=== PATIENT | male | born 1965 | race American Indian/Alaskan Native ===

== ENCOUNTER 2016-10-05 02:51 | Inpatient (IN) | payer MEDICAID, OTHER ==
[2016-10-05 04:24] LABS: Anion Gap 18 mmol/L; Blood Urea Nitrogen 12 mg/dL (9-20); Calcium 8.4 mg/dL (8.4-10.2); Carbon Dioxide 23 mmol/L (22-30); Chloride 100.3 mmol/L (98-107); Glucose 357 mg/dL (75-100); Sodium 137 mmol/L (137-145)
[2016-10-05 04:25] LABS: Basophils % (Auto) 0.6 % (0.0-1.8); Eosinophils % (Auto) 5.3 % (0.0-4.3); Hematocrit 41.8 % (35.5-45.6); Hemoglobin 13.9 gm/dl (11.8-15.2); Mean Corpuscular HGB Conc 33 % (32-34); Mean Corpuscular Hemoglobin 31 pg (28-32); Mean Corpuscular Volume 92 fl (84-94); Platelet Count 216 K/mm3 (140-440); Red Blood Count 4.53 M/mm3 (3.65-5.03); Red Cell Distribution Width 13.4 % (13.2-15.2); White Blood Count 5.5 K/mm3 (4.5-11.0)
--- NOTE | 2016-10-05 04:49 | Cat Scan Report ---
FINAL REPORT PROCEDURE: CT HEAD/BRAIN WO CON TECHNIQUE: Computerized tomography of the head was performed without contrast material. HISTORY: headache COMPARISON: No prior studies are available for comparison. FINDINGS: Skull and scalp: Normal. Paranasal sinuses: Normal. Ventricles and subarachnoid spaces: Normal. Cerebrum: No evidence of hemorrhage, acute infarction or mass . Cerebellum and brainstem: No evidence of hemorrhage, acute infarction or mass. Vasculature: Normal. Comments: None. IMPRESSION: Normal Examination
[2016-10-05] MEDS ORDERED: TYLENOL ONE (05:55)
[2016-10-05] MEDS ORDERED: TYLENOL PO ONE (06:06)
--- NOTE | 2016-10-05 06:29 | Emergency Department Report ---
ED General Adult HPI - General Chief complaint: Headache Stated complaint: HEAD ACHES, BACK PAIN Time Seen by Provider: 10/05/16 06:19 Source: patient Mode of arrival: Ambulatory Limitations: No Limitations - History of Present Illness Initial comments: The patient states that he burned his finger on a step on . He states he recalled and bumped his head causing him to be momentarily dazed. Subsequent to that he has had a headache at the site of the head impact which was abraded. He states he went to work on Thursday and passed out completely at work. He has no report of seizure activity. He states he is not had any previous syncopal episode. He presents to the emergency department today mainly for his headache and just not feeling well. He states that he checks his sugar daily and that he took his insulin and metformin this morning. However his diabetes remains poorly controlled. He has not had any fever or chills. He admits to some degree of hurting all over but denies any injury to his neck or back from the fall. He does have some chronic neck and back pain however. -: Sudden, days(s) Location: head Radiation: non-radiation Severity scale (0 -10): 8 Quality: aching Consistency: constant Improves with: none Worsens with: none Associated Symptoms: denies other symptoms, weakness Treatments Prior to Arrival: none - Related Data Home Medications Medication Instructions Recorded Confirmed Last Taken metFORMIN [Glucophage] 1,000 mg PO BID 01/25/15 08/01/15 Unknown Gabapentin 08/01/15 Unknown Insulin NPH/Regular [Novolin 70/30] 30 unit SQ TIDDIAB 08/01/15 08/01/15 Unknown Previous Rx's Medication Instructions Recorded Last Taken Type oxyCODONE /ACETAMINOPHEN [Percocet 1 tab PO Q6HR PRN #8 tablet 01/25/15 Unknown Rx 5/325 mg] Amoxicillin/K Clav Tab [Augmentin 1 tab PO Q12HR #20 tab 02/09/16 Unknown Rx 875 mg] predniSONE [Deltasone] 50 mg PO QDAY #5 tab 02/09/16 Unknown Rx Allergies Allergy/AdvReac Type Severity Reaction Status Date / Time insulin glargine, human Allergy Swelling Verified 03/05/15 00:07 recombin. a [From Lantus] Iodinated Contrast Media - Allergy Angioedema Verified 01/25/15 10:33 IV Dye lisinopril Allergy Unknown Verified 03/01/15 15:36 shellfish derived Allergy Angioedema Verified 01/25/15 10:33 sulfamethoxazole Allergy Hives Verified 01/25/15 10:33 [From Bactrim] tramadol Allergy Swelling Verified 01/25/15 10:33 trimethoprim [From Bactrim] Allergy Hives Verified 01/25/15 10:33 ED Review of Systems ROS: Stated complaint: HEAD ACHES, BACK PAIN Other details as noted in HPI Constitutional: weakness. denies: chills, fever Eyes: denies: eye pain, eye discharge, vision change ENT: denies: ear pain, throat pain Respiratory: denies: cough, shortness of breath, wheezing Cardiovascular: denies: chest pain, palpitations Endocrine: no symptoms reported Gastrointestinal: denies: abdominal pain, nausea, diarrhea Genitourinary: denies: urgency, dysuria Musculoskeletal: denies: back pain, joint swelling, arthralgia Skin: denies: rash, lesions Neurological: headache. 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 ANEMIA. GASTROPARESIS - Surgical History Past Surgical History?: No - Social History Smoking Status: Current Some Day Smoker Substance Use Type: None - Medications Home Medications: Home Medications Medication Instructions Recorded Confirmed Last Taken Type metFORMIN [Glucophage] 1,000 mg PO BID 01/25/15 08/01/15 Unknown History oxyCODONE /ACETAMINOPHEN [Percocet 1 tab PO Q6HR PRN #8 tablet 01/25/15 Unknown Rx 5/325 mg] Gabapentin 08/01/15 Unknown History Insulin NPH/Regular [Novolin 70/30] 30 unit SQ TIDDIAB 08/01/15 08/01/15 Unknown History Amoxicillin/K Clav Tab [Augmentin 1 tab PO Q12HR #20 tab 02/09/16 Unknown Rx 875 mg] predniSONE [Deltasone] 50 mg PO QDAY #5 tab 02/09/16 Unknown Rx ED Physical Exam - General Limitations: No Limitations General appearance: alert, in no apparent distress - Head Head exam: Present: normocephalic, other (forehead abrasion soft tissue swelling no hematoma apparent) - Eye Eye exam: Present: normal appearance. Absent: scleral icterus - ENT ENT exam: Present: mucous membranes moist - Neck Neck exam: Present: normal inspection - Respiratory Respiratory exam: Present: normal lung sounds bilaterally. Absent: respiratory distress - Cardiovascular Cardiovascular Exam: Present: regular rate, normal rhythm. Absent: systolic murmur, diastolic murmur, rubs, gallop - GI/Abdominal GI/Abdominal exam: Present: soft, normal bowel sounds. Absent: distended, tenderness, guarding, rebound - Rectal Rectal exam: Present: deferred - Extremities Exam Extremities exam: Present: normal inspection - Back Exam Back exam: Present: normal inspection - Neurological Exam Neurological exam: Present: alert, oriented X3, CN II-XII intact. Absent: motor sensory deficit - Psychiatric Psychiatric exam: Present: normal affect, normal mood - Skin Skin exam: Present: warm, dry, intact, normal color. Absent: rash ED Course Vital Signs 10/05/16 10/05/16 10/05/16 03:17 04:06 04:10 Temperature 98.7 F Pulse Rate 80 73 Respiratory 18 12 19 Rate Blood Pressure 166/113 141/89 Blood Pressure 166/113 [Left] O2 Sat by Pulse 97 98 Oximetry 10/05/16 10/05/16 10/05/16 04:12 04:28 04:30 Temperature Pulse Rate 73 68 64 Respiratory 15 16 Rate Blood Pressure 141/89 153/91 Blood Pressure 141/89 [Left] O2 Sat by Pulse 98 97 94 Oximetry 10/05/16 10/05/16 10/05/16 04:40 04:50 05:00 Temperature Pulse Rate 71 66 69 Respiratory 18 17 16 Rate Blood Pressure 153/91 153/91 147/98 Blood Pressure [Left] O2 Sat by Pulse 96 99 94 Oximetry 10/05/16 10/05/16 10/05/16 05:10 05:20 05:30 Temperature Pulse Rate 69 68 61 Respiratory 19 19 17 Rate Blood Pressure 147/98 147/98 153/94 Blood Pressure [Left] O2 Sat by Pulse 96 97 92 Oximetry 10/05/16 10/05/16 10/05/16 05:40 05:50 06:00 Temperature Pulse Rate 59 L 68 59 L Respiratory 16 21 15 Rate Blood Pressure 153/94 153/94 144/88 Blood Pressure [Left] O2 Sat by Pulse 100 99 96 Oximetry 10/05/16 10/05/16 10/05/16 06:10 06:28 06:30 Temperature Pulse Rate 63 63 64 Respiratory 16 22 15 Rate Blood Pressure 144/88 144/88 144/88 Blood Pressure [Left] O2 Sat by Pulse 98 99 98 Oximetry 10/05/16 10/05/16 10/05/16 06:40 06:46 07:00 Temperature Pulse Rate 66 64 62 Respiratory 18 22 13 Rate Blood Pressure 144/88 144/88 155/97 Blood Pressure [Left] O2 Sat by Pulse 96 97 96 Oximetry 10/05/16 10/05/16 07:16 07:30 Temperature Pulse Rate 60 55 L Respiratory 18 16 Rate Blood Pressure 155/97 165/95 Blood Pressure [Left] O2 Sat by Pulse 97 Oximetry - Reevaluation(s) Reevaluation #1: Patient was given analgesia. He was found resting comfortably. I thought it prudent to observe him in the hospital for his syncopal episode. I gave him some subcutaneous insulin for his uncontrolled hyperglycemia. Case was reported to Dr. Julio of the hospitalist service who will be seeing him. 10/05/16 08:00 ED Medical Decision Making - Lab Data Result diagrams: 10/05/16 03:51 10/05/16 03:51 Laboratory Results - last 24 hr 10/05/16 10/05/16 10/05/16 03:51 03:51 03:51 WBC 5.5 RBC 4.53 Hgb 13.9 Hct 41.8 MCV 92 MCH 31 MCHC 33 RDW 13.4 Plt Count 216 Lymph % (Auto) 46.0 H Bertie % (Auto) 12.4 H Eos % (Auto) 5.3 H Baso % (Auto) 0.6 Lymph # 2.5 Bertie # 0.7 Eos # 0.3 Baso # 0.0 Seg Neutrophils % 35.7 L Seg Neutrophils # 2.0 VBG pH 7.290 L Sodium 137 Potassium 4.0 Chloride 100.3 Carbon Dioxide 23 Anion Gap 18 BUN 12 Creatinine 1.0 Estimated GFR > 60 BUN/Creatinine Ratio 12.00 Glucose 357 H Calcium 8.4 - EKG Data -: EKG Interpreted by Me EKG shows normal: sinus rhythm, axis, intervals, QRS complexes, ST-T waves Rate: normal - EKG Data Interpretation: no acute changes - Radiology Data interpreted by me: Chest x-ray no acute process CT of the head no acute process. Critical care attestation.: If time is entered above; I have spent that time in minutes in the direct care of this critically ill patient, excluding procedure time. ED Disposition Clinical Impression: Syncopal episodes Qualifiers: Syncope type: unspecified Qualified Code(s): R55 - Syncope and collapse Closed head injury Qualifiers: Encounter type: initial encounter Qualified Code(s): S09.90XA - Unspecified injury of head, initial encounter Forehead abrasion Qualifiers: Encounter type: initial encounter Qualified Code(s): S00.81XA - Abrasion of other part of head, initial encounter Type 2 diabetes mellitus with hyperglycemia Qualifiers: Diabetes mellitus rat exterminator insulin use: with rat exterminator use Qualified Code(s): E11.65 - Type 2 diabetes mellitus with hyperglycemia; Z79.4 - prison (current ) use of insulin Disposition: OP ADMITTED IP TO THIS HOSP Is pt being admited?: Yes Does the pt Need Aspirin: Yes Condition: Stable Instructions: Syncope (ED), Diabetes Mellitus Type 2 in Adults (ED) Referrals: PRIMARY CARE, [Primary Care Provider] - 3-5 Days Time of Disposition: 08:04
[2016-10-05] MEDS ORDERED: NORCO 5/325 PO ONE (06:46)
[2016-10-05 07:13] LABS: Bilirubin,Urine NEG (Negative); Blood,Urine NEG (Negative); Ketones,Urine NEG (Negative); Leukocyte Esterase,Urine NEG (Negative); Mucus,Urine FEW /HPF; Nitrite,Urine NEG (Negative); Protein,Urine <15 mg/dL mg/dL (Negative); Urobilinogen,Urine < 2.0 mg/dL (<2.0); WBC,Urine < 1.0 /HPF (0.0-6.0)
[2016-10-05 07:49] LABS: Urine Drugs of Abuse Note Disclamer
[2016-10-05] MEDS ORDERED: BOOSTRIX IM ONE ×2 (07:53→12:24)
[2016-10-05] MEDS ORDERED: BABY ASPIRIN PO ONE (08:04)
--- NOTE | 2016-10-05 08:15 | Admit Criteria Form ---
Admission Criteria Documentation: SYNCOPE Clinical Indications for Admission to Inpatient Care ( Place 'X' for any and all applicable criteria): Admission is indicated for syncope and ANY ONE of the following (1)(2)(3)(4)(5) (6)(7) : [X ]I. Inpatient admission required rather than observation care (Also use Syncope: Observation Care Criteria as appropriate) because of ANY ONE of the following: [ ]a) Hemodynamic instability that is severe or persistent [ ]b) Cardiac arrhythmias of immediate concern identified or strongly suspected (eg, needs electrophysiologic study) [ ]c) Acute coronary syndrome identified (Also use Myocardial Infarction or Angina Criteria form ) [ ]d) Structural cardiac disorder (eg, aortic stenosis) suspected as cause that requires immediate correction [ ]e) Respiratory symptoms (eg, dyspnea, tachypnea) that are severe or persistent [ ]f) Neurologic signs or symptoms that are severe or persistent ( eg, stroke, seizures, altered mental status) [ ]g) Severe electrolyte abnormalities requiring inpatient care [ ]h) Supplemental oxygen or respiratory treatment for over 24 hrs that are performable only in acute inpatient setting [ ]i) IV fluid to replace significant ongoing (eg, for over 24 hrs ) losses (>3 L/m2 per day) [ ]j) Continuous intravenous infusion of anticoagulation, platelet inhibitor, vasoactive, or antiarrhythmic medication(15)(16) [ ]k) Pulmonary artery catheter monitoring [ ]l) Temporary pacemaker placement(17) [ ]m) Emergent cardioversion(18) [X ]n) Other conditions, treatment or monitoring requiring inpatient admission [ ]II. Suspicion of imminently dangerous cause (eg, rare causes like pericardial tamponade, pulmonary embolism) [ ]III. Syncope causing severe injury requiring hospitalization Extended stay beyond goal length of stay may be needed for(28) [ ]a) Dangerous arrhythmia(15)(23)(27)(29) [ ]b) Myocardial ischemia [ ]c) Seizure disorder [ ]d) Syncope-related injuries The original [employer] content created by [employer] has been revised. The portions of the content which have been revised are identified through the use of italic text or in bold, and [employer] has neither reviewed nor approved the modified material. All other unmodified content is copyright [facility] [employer]. Please see references footnoted in the original [facility] edition 2016 Admission Criteria Met: Yes
[2016-10-05] MEDS ORDERED: MILK OF MAGNESIA PO PRN (08:20)
[2016-10-05] MEDS ORDERED: D50W (25GM) IV PRN (09:00)
[2016-10-05] MEDS ORDERED: DULCOLAX PR PRN (09:00)
--- NOTE | 2016-10-05 09:38 | History and Physical Report ---
History of Present Illness Date of examination: 10/05/16 History of present illness: The patient states that he burned his finger on a step on . He states he recalled and bumped his head causing him to be momentarily dazed. Subsequent to that he has had a headache at the site of the head impact which was abraded. He states he went to work on Thursday and passed out completely at work. He has no report of seizure activity. He states he is not had any previous syncopal episode. He presents to the emergency department today mainly for his headache and just not feeling well. He states that he checks his sugar daily and that he took his insulin and metformin this morning. However his diabetes remains poorly controlled. He has not had any fever or chills. He admits to some degree of hurting all over but denies any injury to his neck or back from the fall. He does have some chronic neck and back pain however. Past History Past Medical History: diabetes Medications and Allergies Allergies Allergy/AdvReac Type Severity Reaction Status Date / Time insulin glargine, human Allergy Swelling Verified 03/05/15 00:07 recombin. a [From Lantus] Iodinated Contrast Media - Allergy Angioedema Verified 01/25/15 10:33 IV Dye lisinopril Allergy Unknown Verified 03/01/15 15:36 shellfish derived Allergy Angioedema Verified 01/25/15 10:33 sulfamethoxazole Allergy Hives Verified 01/25/15 10:33 [From Bactrim] tramadol Allergy Swelling Verified 01/25/15 10:33 trimethoprim [From Bactrim] Allergy Hives Verified 01/25/15 10:33 Home Medications Medication Instructions Recorded Confirmed Last Taken Type metFORMIN [Glucophage] 1,000 mg PO BID 01/25/15 08/01/15 Unknown History oxyCODONE /ACETAMINOPHEN [Percocet 1 tab PO Q6HR PRN #8 tablet 01/25/15 Unknown Rx 5/325 mg] Gabapentin 08/01/15 Unknown History Insulin NPH/Regular [Novolin 70/30] 30 unit SQ TIDDIAB 08/01/15 08/01/15 Unknown History Amoxicillin/K Clav Tab [Augmentin 1 tab PO Q12HR #20 tab 02/09/16 Unknown Rx 875 mg] predniSONE [Deltasone] 50 mg PO QDAY #5 tab 02/09/16 Unknown Rx Active Meds: Active Medications Acetaminophen (Tylenol) 650 mg PO Q4H PRN PRN Reason: Pain MILD(1-3)/Fever >100.5/RODGERS Bisacodyl (Dulcolax) 10 mg FL QDAY PRN PRN Reason: Constipation unrelieved by MOM Dextrose (D50w (25gm)) 50 ml IV PRN PRN PRN Reason: Hypoglycemia Enoxaparin Sodium (Lovenox) 40 mg SUB-Q QDAY@1000 CHRISTIN Gabapentin (Neurontin) 300 mg PO BID CHRISTIN Sodium Chloride (Nacl 0.9% 1000 Ml) 1,000 mls @ 100 mls/hr IV DIRECT CHRISTIN Insulin Aspart (Novolog) 0 units SUB-Q ACHS CHRISTIN PRN Reason: Protocol Insulin Human Isoph/Insulin Regular (Novolin 70/30) 30 unit SUB-Q TIDDIAB CHRISTIN Magnesium Hydroxide (Milk Of Magnesia) 30 ml PO Q4H PRN PRN Reason: Constipation Metformin HCl (Glucophage) 1,000 mg PO BIDDIAB CHRISTIN Ondansetron HCl (Zofran) 4 mg IV Q8H PRN PRN Reason: Nausea And Vomiting Review of Systems Neurological: syncope Exam - Constitutional Vitals: Temp Pulse Resp BP Pulse Ox 98.7 F 55 L 16 165/95 97 10/05/16 03:17 10/05/16 07:30 10/05/16 07:30 10/05/16 07:30 10/05/16 07:16 General appearance: Present: no acute distress - EENT Eyes: Present: PERRL, EOM intact ENT: hearing intact, clear oral mucosa - Neck Neck: Present: supple, normal ROM - Respiratory Respiratory effort: normal Respiratory: bilateral: CTA - Cardiovascular Rhythm: regular Heart Sounds: Present: S1 & S2 - Extremities Extremities: no ischemia, No edema - Abdominal General gastrointestinal: Present: soft, non-tender, non-distended, normal bowel sounds - Musculoskeletal Musculoskeletal: strength equal bilaterally - Psychiatric Psychiatric: appropriate mood/affect, intact judgment & insight - Neurologic Neurologic: CNII-XII intact, moves all extremities Results - Labs CBC & Chem 7: 10/05/16 03:51 10/05/16 03:51 Labs: Laboratory Last Values WBC 5.5 K/mm3 (4.5-11.0) 10/05/16 03:51 RBC 4.53 M/mm3 (3.65-5.03) 10/05/16 03:51 Hgb 13.9 gm/dl (11.8-15.2) 10/05/16 03:51 Hct 41.8 % (35.5-45.6) 10/05/16 03:51 MCV 92 fl (84-94) 10/05/16 03:51 MCH 31 pg (28-32) 10/05/16 03:51 MCHC 33 % (32-34) 10/05/16 03:51 RDW 13.4 % (13.2-15.2) 10/05/16 03:51 Plt Count 216 K/mm3 (140-440) 10/05/16 03:51 Lymph % (Auto) 46.0 % (13.4-35.0) H 10/05/16 03:51 [place] % (Auto) 12.4 % (0.0-7.3) H 10/05/16 03:51 Eos % (Auto) 5.3 % (0.0-4.3) H 10/05/16 03:51 Baso % (Auto) 0.6 % (0.0-1.8) 10/05/16 03:51 Lymph # 2.5 K/mm3 (1.2-5.4) 10/05/16 03:51 [place] # 0.7 K/mm3 (0.0-0.8) 10/05/16 03:51 Eos # 0.3 K/mm3 (0.0-0.4) 10/05/16 03:51 Baso # 0.0 K/mm3 (0.0-0.1) 10/05/16 03:51 Seg Neutrophils % 35.7 % (40.0-70.0) L 10/05/16 03:51 Seg Neutrophils # 2.0 K/mm3 (1.8-7.7) 10/05/16 03:51 VBG pH 7.290 (7.320-7.420) L 10/05/16 03:51 Sodium 137 mmol/L (137-145) 10/05/16 03:51 Potassium 4.0 mmol/L (3.6-5.0) 10/05/16 03:51 Chloride 100.3 mmol/L (98-107) 10/05/16 03:51 Carbon Dioxide 23 mmol/L (22-30) 10/05/16 03:51 Anion Gap 18 mmol/L 10/05/16 03:51 BUN 12 mg/dL (9-20) 10/05/16 03:51 Creatinine 1.0 mg/dL (0.8-1.5) 10/05/16 03:51 Estimated GFR > 60 ml/min 10/05/16 03:51 BUN/Creatinine Ratio 12.00 % 10/05/16 03:51 Glucose 357 mg/dL (75-100) H 10/05/16 03:51 POC Glucose 328 (70-105) H 10/05/16 03:32 Calcium 8.4 mg/dL (8.4-10.2) 10/05/16 03:51 Triglycerides 184 mg/dL (2-149) H 10/05/16 08:39 Cholesterol 123 mg/dL (50-199) 10/05/16 08:39 LDL Cholesterol Direct 57 mg/dL (50-130) 10/05/16 08:39 HDL Cholesterol 30 mg/dL (40-59) L 10/05/16 08:39 Cholesterol/HDL Ratio 4.10 % 10/05/16 08:39 Urine Color Yellow (Yellow) 10/05/16 06:34 Urine Turbidity Clear (Clear) 10/05/16 06:34 Urine pH 6.0 (5.0-7.0) 10/05/16 06:34 Ur Specific [place] 1.030 (1.003-1.030) 10/05/16 06:34 Urine Protein <15 mg/dl mg/dL (Negative) 10/05/16 06:34 Urine Glucose (UA) >=500 mg/dL (Negative) 10/05/16 06:34 Urine Ketones Neg mg/dL (Negative) 10/05/16 06:34 Urine Blood Neg (Negative) 10/05/16 06:34 Urine Nitrite Neg (Negative) 10/05/16 06:34 Urine Bilirubin Neg (Negative) 10/05/16 06:34 Urine Urobilinogen < 2.0 mg/dL (<2.0) 10/05/16 06:34 Ur Leukocyte Esterase Neg (Negative) 10/05/16 06:34 Urine WBC (Auto) < 1.0 /HPF (0.0-6.0) 10/05/16 06:34 Urine RBC (Auto) 3.0 /HPF (0.0-6.0) 10/05/16 06:34 Urine Mucus Few /HPF 10/05/16 06:34 Urine Opiates Screen Presumptive negative 10/05/16 06:30 Urine Methadone Screen Presumptive negative 10/05/16 06:30 Ur Barbiturates Screen Presumptive positive 10/05/16 06:30 Ur Phencyclidine Scrn Presumptive negative 10/05/16 06:30 Ur Amphetamines Screen Presumptive negative 10/05/16 06:30 U Benzodiazepines Scrn Presumptive negative 10/05/16 06:30 Urine Cocaine Screen Presumptive positive 10/05/16 06:30 U Marijuana (THC) Screen Presumptive negative 10/05/16 06:30 Drugs of Abuse Note Disclamer 10/05/16 06:30 Assessment and Plan - Patient Problems (1) Diabetes mellitus Current Visit: Yes Status: Acute Qualifiers: Diabetes mellitus type: D Diabetes mellitus complication status: D Diabetes mellitus complication detail: D Diabetic retinopathy severity: D Proliferative retinopathy type: P Diabetes mellitus macular edema: D 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 Follow hemoglobin A1c (2) Syncopal episodes Current Visit: Yes Status: Acute Qualifiers: Syncope type: unspecified Encounter type: E Qualified Code(s): R55 - Syncope and collapse Plan to address problem: We'll admit to telemetry, get 2-D echo, get Lexiscan stress test, will get cardiology consultation
--- NOTE | 2016-10-05 09:46 | XRay Report ---
AP CHEST: HISTORY: Hypertension AP view of the chest demonstrates a normal mediastinal and cardiac contour with clear lungs and normal bony and soft tissue structures. IMPRESSION: Unremarkable AP chest.
[2016-10-05] MEDS ORDERED: LOVENOX SUB-Q SCH (10:00)
[2016-10-05] MEDS ORDERED: NON-FORMULARY (Gabapentin 300 MG) PO SCH (10:00)
[2016-10-05] MEDS ORDERED: BABY ASPIRIN ONE (12:23)
[2016-10-05] MEDS: LOVENOX SUB-Q SCH (12:36)
[2016-10-05] MEDS: NACL 0.9% 1000 ML 1,000 ML IV SCH (12:36)
[2016-10-05] MEDS: NEURONTIN PO SCH ×2 (12:36→22:49)
[2016-10-05] MEDS: GLUCOPHAGE PO SCH ×2 (12:36→18:04)
[2016-10-05] MEDS: NOVOLOG SUB-Q SCH ×3 (15:39→22:49)
[2016-10-05] MEDS: ZOFRAN IV PRN (18:04)
[2016-10-05] MEDS: TYLENOL PO PRN (18:04)
[2016-10-06] MEDS: TYLENOL PO PRN ×3 (05:28→18:11)
[2016-10-06] MEDS: NACL 0.9% 1000 ML 1,000 ML IV SCH (05:29)
[2016-10-06 06:16] LABS: Hematocrit 42.4 % (35.5-45.6); Mean Corpuscular HGB Conc 33 % (32-34); Mean Corpuscular Hemoglobin 30 pg (28-32); Mean Corpuscular Volume 91 fl (84-94); Platelet Count 189 K/mm3 (140-440); Red Blood Count 4.67 M/mm3 (3.65-5.03); Red Cell Distribution Width 13.1 % (13.2-15.2); White Blood Count 4.7 K/mm3 (4.5-11.0)
[2016-10-06 07:10] LABS: Alanine Aminotransferase 24 units/L (7-56); Albumin 3.8 g/dL (3.9-5); Albumin/Globulin Ratio 1.5 %; Alkaline Phosphatase 72 units/L (35-129); Anion Gap 15 mmol/L; Bilirubin,Total 0.2 mg/dL (0.1-1.2); Blood Urea Nitrogen 12 mg/dL (9-20); Calcium 8.6 mg/dL (8.4-10.2); Carbon Dioxide 24 mmol/L (22-30); Chloride 102.7 mmol/L (98-107); Glucose 208 mg/dL (75-100); Potassium 4.2 mmol/L (3.6-5.0); Sodium 137 mmol/L (137-145); Total Protein 6.3 g/dL (6.3-8.2)
[2016-10-06 07:36] LABS: Creatine Kinase MB 1.6 ng/mL (0.0-4.0)
[2016-10-06 07:37] LABS: Creatine Kinase 157 units/L (55-170)
[2016-10-06] MEDS: GLUCOPHAGE PO SCH ×2 (08:18→18:11)
[2016-10-06] MEDS: NOVOLOG SUB-Q SCH ×3 (08:18→18:11)
[2016-10-06 09:17] LABS: Basophils % (Manual) 0 % (0.0-1.8); Blastocytes % (Manual) 0 %
[2016-10-06 09:18] LABS: Diff Status Complete; RBC Morphology Normal
[2016-10-06] MEDS ORDERED: LEXISCAN IV ONE (10:30)
[2016-10-06] MEDS: ZOFRAN IV PRN (13:35)
[2016-10-06] MEDS: NEURONTIN PO SCH (13:35)
[2016-10-06] MEDS: LOVENOX SUB-Q SCH ×2 (13:35→13:39)
--- NOTE | 2016-10-06 13:39 | Consultation ---
History of Present Illness Consult date: 10/06/16 Consult reason: syncope History of present illness: Patient is a 50-year-old man presented to the emergency room 2 days after a syncopal episode. He eventually reported with persistent headache and low back pain. There was no chest pain or shortness of breath. A CAT scan of the head in the emergency room was negative. During his period of hospitalization, his blood pressure has remained persistently elevated, as high as 186 systolic today. He was seen by the medical team, a thallium stress test was ordered, and cardiac consultation was requested. A Persantine thallium stress test today was negative. An echocardiogram showed well-preserved left ventricular systolic function with ejection fraction 55-60% , mild concentric left ventricular hypertrophy. It is uncertain if his hypertension is a new diagnosis. Comorbidities include diabetes, he is recently not on antihypertensive medications. Past History Past Medical History: diabetes, hypertension Medications and Allergies Allergies Allergy/AdvReac Type Severity Reaction Status Date / Time insulin glargine, human Allergy Swelling Verified 03/05/15 00:07 recombin. a [From Lantus] Iodinated Contrast Media - Allergy Angioedema Verified 01/25/15 10:33 IV Dye lisinopril Allergy Unknown Verified 03/01/15 15:36 shellfish derived Allergy Angioedema Verified 01/25/15 10:33 sulfamethoxazole Allergy Hives Verified 01/25/15 10:33 [From Bactrim] tramadol Allergy Swelling Verified 01/25/15 10:33 trimethoprim [From Bactrim] Allergy Hives Verified 01/25/15 10:33 Home Medications Medication Instructions Recorded Confirmed Last Taken Type metFORMIN [Glucophage] 1,000 mg PO BID 01/25/15 10/06/16 1 Day Ago History Insulin NPH/Regular [Novolin 70/30] 30 unit SQ TIDDIAB 08/01/15 10/06/16 1 Day Ago History Active Meds: Active Medications Acetaminophen (Tylenol) 650 mg PO Q4H PRN PRN Reason: Pain MILD(1-3)/Fever >100.5/RODGERS Last Admin: 10/06/16 05:28 Dose: 650 mg Bisacodyl (Dulcolax) 10 mg PA QDAY PRN PRN Reason: Constipation unrelieved by MOM Dextrose (D50w (25gm)) 50 ml IV PRN PRN PRN Reason: Hypoglycemia Enoxaparin Sodium (Lovenox) 40 mg SUB-Q QDAY@1000 [facility] Last Admin: 10/05/16 12:36 Dose: 40 mg Gabapentin (Neurontin) 300 mg PO BID [facility] Last Admin: 10/05/16 22:49 Dose: 300 mg Sodium Chloride (Nacl 0.9% 1000 Ml) 1,000 mls @ 100 mls/hr IV DIRECT [facility] Last Admin: 10/06/16 05:29 Dose: 100 mls/hr Insulin Aspart (Novolog) 0 units SUB-Q ACHS [facility] PRN Reason: Protocol Last Admin: 10/06/16 08:18 Dose: Not Given Insulin Human Isoph/Insulin Regular (Novolin 70/30) 30 unit SUB-Q TIDDIAB [facility] Last Admin: 10/06/16 08:18 Dose: Not Given Magnesium Hydroxide (Milk Of Magnesia) 30 ml PO Q4H PRN PRN Reason: Constipation Metformin HCl (Glucophage) 1,000 mg PO BIDDIAB [facility] Last Admin: 10/06/16 08:18 Dose: Not Given Ondansetron HCl (Zofran) 4 mg IV Q8H PRN PRN Reason: Nausea And Vomiting Last Admin: 10/05/16 18:04 Dose: 4 mg Review of Systems Cardiovascular: syncope, no chest pain, no orthopnea, no palpitations, no rapid/ irregular heart beat, no edema, no lightheadedness, no shortness of breath Physical Examination Vital Signs Temp Pulse Resp BP Pulse Ox 98.7 F 80 18 166/113 100 10/05/16 03:17 10/05/16 03:17 10/05/16 03:17 10/05/16 03:17 10/05/16 03:17 General appearance: no acute distress HEENT: Positive: PERRL Neck: Positive: neck supple Cardiac: Positive: Reg Rate and Rhythm Lungs: Positive: Decreased Breath Sounds Neuro: Positive: Grossly Intact Abdomen: Positive: Soft Male genitourinary: Positive: deferred Skin: Positive: Clear Extremities: Absent: edema Results 10/06/16 05:06 10/06/16 05:06 Cardiac Enzymes 10/06/16 10/06/16 Range/Units 05:06 05:06 AST 15 (5-40) units/L CK-MB (CK-2) 1.6 (0.0-4.0) ng/mL CBC 10/06/16 Range/Units 05:06 WBC 4.7 (4.5-11.0) K/mm3 RBC 4.67 (3.65-5.03) M/mm3 Hgb 14.0 (11.8-15.2) gm/dl Hct 42.4 (35.5-45.6) % Plt Count 189 (140-440) K/mm3 Comprehensive Metabolic Panel 10/06/16 Range/Units 05:06 Sodium 137 (137-145) mmol/L Potassium 4.2 (3.6-5.0) mmol/L Chloride 102.7 (98-107) mmol/L Carbon Dioxide 24 (22-30) mmol/L BUN 12 (9-20) mg/dL Creatinine 1.0 (0.8-1.5) mg/dL Glucose 208 H (75-100) mg/dL Calcium 8.6 (8.4-10.2) mg/dL AST 15 (5-40) units/L ALT 24 (7-56) units/L Alkaline Phosphatase 72 (35-129) units/L Total Protein 6.3 (6.3-8.2) g/dL Albumin 3.8 L (3.9-5) g/dL EKG interpretations - Telemetry EKG Rhythm: Sinus Rhythm Assessment and Plan - Patient Problems (1) Syncope Current Visit: Yes Status: Acute Qualifiers: Syncope type: S Encounter type: E Plan to address problem: Patient describes a syncopal episode which occurred 2 days prior to presentation , no further complaints related to this. Cardiac workup is negative, with negative Persantine thallium and well-preserved left ventricle systolic function on echocardiogram. (2) Hypertension Current Visit: Yes Status: Acute Qualifiers: Hypertension type: H Plan to address problem: The patient presented with headache and has manifested persistent uncontrolled hypertension. We will recommend hypertension treatment, with Diovan 160 mg daily.
[2016-10-06] MEDS ORDERED: DIOVAN PO SCH (14:00)
--- NOTE | 2016-10-06 14:00 | Treadmill Report ---
THALLIUM STRESS TEST LEFT VENTRICLE: Left ventricle is at the upper limits of normal in size. Perfusion study demonstrates evidence of motion artifact, but no significant perfusion defects identified. Gated analysis demonstrates left ventricular systolic function at the lower limits of normal, ejection fraction of 49%. CONCLUSION: Suboptimal study, no significant defects identified, negative study. Clinical correlation is recommended. JOB# [id number] CA/NTS
--- NOTE | 2016-10-06 17:23 | Progress Note ---
Assessment and Plan 1, Recurrent syncope: No more syncope since admission. No seizure activity noter or reported by any. Normal CT head and ECHO. Aetiology, possibly drug related has positive cocain in urine 2. Malignant Hypertension Optimnize controle with Amlodpine and Valsartan 3. Mutiple drug abuse Has positive cocain and Barbiturate in urine. Counseling on cessation of cocain use done 4. Diabetes Mellitus A1c 9.9%. On insulin therapy Subjective Date of service: 10/06/16 Principal diagnosis: recurrent syndope, Malignant Hypertesnion Interval history: no more syncope. Blood sugar still elevated Objective - Constitutional Vitals: Vital Signs - 12hr 10/06/16 10/06/16 10/06/16 08:00 08:46 09:54 Temperature 97.9 F Pulse Rate 62 57 L Pulse Rate [ 60 Left Radial] Respiratory 20 Rate Blood Pressure 186/107 Blood Pressure 174/90 [Left Arm] O2 Sat by Pulse 97 99 Oximetry 10/06/16 10/06/16 10/06/16 10:22 10:23 10:24 Temperature Pulse Rate 85 83 81 Pulse Rate [ Left Radial] Respiratory Rate Blood Pressure 186/107 167/101 159/99 Blood Pressure [Left Arm] O2 Sat by Pulse Oximetry 10/06/16 10/06/16 10/06/16 10:25 10:26 12:00 Temperature 98.0 F Pulse Rate 78 77 Pulse Rate [ 64 Left Radial] Respiratory 18 Rate Blood Pressure 153/100 165/102 Blood Pressure 167/90 [Left Arm] O2 Sat by Pulse 100 Oximetry General appearance: Present: no acute distress, well-nourished - EENT Eyes: PERRL, EOM intact ENT: hearing intact, clear oral mucosa - Neck Neck: supple, normal ROM - Respiratory Respiratory effort: normal Respiratory: bilateral: CTA - Breasts Breasts: normal - Cardiovascular Rhythm: regular Heart Sounds: Present: S1 & S2. Absent: gallop, rub Extremities: pulses intact, No edema, normal color, Full ROM - Gastrointestinal General gastrointestinal: Present: soft, non-tender, non-distended, normal bowel sounds - Integumentary Integumentary: clear, warm, dry - Musculoskeletal Musculoskeletal: 1, strength equal bilaterally - Neurologic Neurologic: moves all extremities - Psychiatric Psychiatric: memory intact, appropriate mood/affect, intact judgment & insight - Labs CBC & Chem 7: 10/06/16 05:06 10/06/16 05:06 Labs: Abnormal lab results 10/05/16 10/05/16 10/06/16 Range/Units 18:03 21:43 05:06 RDW 13.1 L (13.2-15.2) % Seg Neuts % (Manual) 30.0 L (40.0-70.0) % Lymphocytes % (Manual) 50.0 H (13.4-35.0) % Monocytes % (Manual) 9.0 H (0.0-7.3) % Eosinophils % (Manual) 11.0 H (0.0-4.3) % Seg Neutrophils # Man 1.4 L (1.8-7.7) K/mm3 Eosinophils # (Manual) 0.5 H (0.0-0.4) K/mm3 Glucose (75-100) mg/dL POC Glucose 194 H 284 H (70-105) Albumin (3.9-5) g/dL 10/06/16 Range/Units 05:06 RDW (13.2-15.2) % Seg Neuts % (Manual) (40.0-70.0) % Lymphocytes % (Manual) (13.4-35.0) % Monocytes % (Manual) (0.0-7.3) % Eosinophils % (Manual) (0.0-4.3) % Seg Neutrophils # Man (1.8-7.7) K/mm3 Eosinophils # (Manual) (0.0-0.4) K/mm3 Glucose 208 H (75-100) mg/dL POC Glucose (70-105) Albumin 3.8 L (3.9-5) g/dL
[2016-10-06] MEDS ORDERED: NORVASC PO SCH (18:00)
[2016-10-06 19:48] VITALS: BP 173/83
--- NOTE | 2016-10-06 20:10 | Discharge Summary ---
Providers - Providers Date of Admission: 10/05/16 08:21 Date of discharge: 10/06/16 Attending physician: ANNIKA PIÑA none Primary care physician: BARREL DRILLER Hospitalization Reason for admission: rerecurrent syncope Condition: Stable Procedures: none Disposition: DISCHARGED TO HOME OR SELFCARE Core Measure Documentation - Palliative Care Palliative Care/ Comfort Measures: Not Applicable - Core Measures Any of the following diagnoses?: none Exam - Constitutional Vitals: Temp Pulse Resp BP Pulse Ox 99.1 F 57 L 18 173/83 98 10/06/16 19:47 10/06/16 19:47 10/06/16 19:47 10/06/16 19:47 10/06/16 19:47 General appearance: Present: no acute distress, well-nourished - EENT Eyes: Present: PERRL ENT: hearing intact, clear oral mucosa - Neck Neck: Present: supple, normal ROM - Respiratory Respiratory effort: normal Respiratory: bilateral: CTA - Cardiovascular Heart Sounds: Present: S1 & S2. Absent: rub, click - Extremities Extremities: pulses symmetrical, No edema Peripheral Pulses: within normal limits - Abdominal General gastrointestinal: Present: soft, non-tender, non-distended, normal bowel sounds Male genitourinary: Present: normal - Integumentary Integumentary: Present: clear, warm, dry - Musculoskeletal Musculoskeletal: gait normal, strength equal bilaterally - Psychiatric Psychiatric: appropriate mood/affect, intact judgment & insight - Neurologic Neurologic: CNII-XII intact, moves all extremities Plan Diet: regular Follow up with: PRIMARY CARE, [Primary Care Provider] - 3-5 Days Prescriptions: amLODIPine [Norvasc] 10 mg PO QDAY #30 tablet Gabapentin [Neurontin] 300 mg PO BID #60 capsule Insulin NPH/Regular [NovoLIN 70/30] 30 unit SQ TIDDIAB #200 units metFORMIN [Glucophage] 1,000 mg PO BID #60 tablet Valsartan [Diovan] 160 mg PO DAILY #30 tablet
[2016-10-09 06:08] LABS: B-Hydroxybutyrate 0.1 mmol/L (0.2 - 0.28)
== END 2016-10-06 22:55 | disposition home or self-care (01) | DRG 897 ==
LOC: ED 02:51 → 4A 08:21
PROVIDERS: ADMIT Internal Medicine; ATTEND Family Medicine
DX: F14.10 Cocaine abuse, uncomplicated (principal); R55 Syncope and collapse; F13.10 Sedative, hypnotic or anxiolytic abuse, uncomplicated; Z91.013 Allergy to seafood; Z88.8 Allergy status to other drugs, medicaments and biological substances; Z91.041 Radiographic dye allergy status; I10 Essential (primary) hypertension; Z88.2 Allergy status to sulfonamides; K31.84 Gastroparesis; E11.65 Type 2 diabetes mellitus with hyperglycemia; G89.29 Other chronic pain; S00.81XA Abrasion of other part of head, initial encounter; X58.XXXA Exposure to other specified factors, initial encounter; Y93.89 Activity, other specified; Y92.89 Other specified places as the place of occurrence of the external cause; Y99.8 Other external cause status; Z79.4 Long term (current) use of insulin; Z71.51 Drug abuse counseling and surveillance of drug abuser
CPT/HCPCS: 36415; 70450; 71010; 78452; 80048; 80053; 80061; 80307; 81001; 82010; 82043; 82550; 82553; 82805; 82962; 83036; 84484; 85007; 85025; 90471; 90715; 93005; 93010; 93017; 93306; 96372; 99406; A9502; J1650; J1815; J2405; J2785; J7030

== ENCOUNTER 2017-02-26 17:40 | Emergency (ER) | payer SELFPAY | END 2017-02-26 17:50 | disposition left against medical advice (07) | LOC: ED 17:40 | DX: Z53.21 Procedure and treatment not carried out due to patient leaving prior to being seen by health care provider (principal) ==

== ENCOUNTER 2017-04-02 09:27 | Emergency (ER) | payer OTHER ==
[2017-04-02 09:49] VITALS: BP 166/97
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
[2017-04-02 11:27] LABS: Bilirubin,Urine NEG (Negative); Blood,Urine NEG (Negative); Ketones,Urine NEG (Negative); Leukocyte Esterase,Urine NEG (Negative); Mucus,Urine FEW /HPF; Nitrite,Urine NEG (Negative); Protein,Urine <15 mg/dL mg/dL (Negative); Urobilinogen,Urine < 2.0 mg/dL (<2.0)
[2017-04-02] MEDS ORDERED: NORCO 5/325 PO ONE (12:00)
[2017-04-02] MEDS ORDERED: FLEXERIL PO ONE (12:02)
== END 2017-04-02 13:30 | disposition home or self-care (01) ==
LOC: ED 09:27
DX: S09.90XA Unspecified injury of head, initial encounter (principal); M54.16 Radiculopathy, lumbar region; G44.309 Post-traumatic headache, unspecified, not intractable; I10 Essential (primary) hypertension; E11.9 Type 2 diabetes mellitus without complications; F17.200 Nicotine dependence, unspecified, uncomplicated; Z79.4 Long term (current) use of insulin; V49.49XA Driver injured in collision with other motor vehicles in traffic accident, initial encounter; Y92.488 Other paved roadways as the place of occurrence of the external cause; Y93.89 Activity, other specified; Y99.8 Other external cause status
CPT/HCPCS: 70450; 81001

== ENCOUNTER 2017-05-01 01:14 | Emergency (ER) | payer SELFPAY ==
[2017-05-01 01:54] LABS: Hematocrit 43.4 % (35.5-45.6); Hemoglobin 14.7 gm/dl (11.8-15.2); Mean Corpuscular HGB Conc 34 % (32-34); Mean Corpuscular Hemoglobin 31 pg (28-32); Mean Corpuscular Volume 90 fl (84-94); Platelet Count 205 K/mm3 (140-440); Red Cell Distribution Width 13.6 % (13.2-15.2); White Blood Count 4.6 K/mm3 (4.5-11.0)
[2017-05-01 02:17] LABS: Anion Gap 17 mmol/L; BUN/Creatinine Ratio 15; Blood Urea Nitrogen 15 mg/dL (9-20); Calcium 8.7 mg/dL (8.4-10.2); Carbon Dioxide 27 mmol/L (22-30); Chloride 102.8 mmol/L (98-107); Glucose 211 mg/dL (75-100); Potassium 3.9 mmol/L (3.6-5.0); Sodium 143 mmol/L (137-145)
[2017-05-01 03:23] LABS: Bacteria,Urine 1+ /HPF (Negative); Bilirubin,Urine NEG (Negative); Blood,Urine NEG (Negative); Ketones,Urine NEG (Negative); Leukocyte Esterase,Urine NEG (Negative); Mucus,Urine FEW /HPF; Nitrite,Urine NEG (Negative); Protein,Urine <15 mg/dL mg/dL (Negative); RBC,Urine < 1.0 /HPF (0.0-6.0)
--- NOTE | 2017-05-01 04:49 | Cat Scan Report ---
FINAL REPORT EXAM: CT HEAD/BRAIN WO CON HISTORY: RODGERS TECHNIQUE: Routine axial imaging was obtained of the brain without IV contrast. Comparison is made to the study of 04/02/2017 FINDINGS: There are no attenuation abnormalities. The ventricular system is appropriate in size and is symmetric. The basal cisterns appear normal. The visualized sinuses are clear. The mastoid air cells are well pneumatized IMPRESSION: Within normal limits.
[2017-05-01 09:09] VITALS: BP 136/84
== END 2017-05-01 08:40 | disposition left against medical advice (07) ==
LOC: ED 01:14
DX: R51 Headache (principal); Z53.21 Procedure and treatment not carried out due to patient leaving prior to being seen by health care provider
CPT/HCPCS: 36415; 70450; 80048; 81001; 85027

== ENCOUNTER 2017-10-10 07:40 | Inpatient (IN) | payer OTHER ==
[2017-10-10] MEDS ORDERED: GEODON IM ONE ×2 (08:12→08:15)
[2017-10-10] MEDS ORDERED: WATER FOR INJ (PF) 10 ML ONE (08:12)
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
[2017-10-10 08:47] LABS: Bilirubin,Urine NEG (Negative); Blood,Urine MOD (Negative); Color,Urine Yellow (Yellow); Mucus,Urine FEW /HPF; Urobilinogen,Urine < 2.0 mg/dL (<2.0)
[2017-10-10 09:02] LABS: Eosinophils % (Auto) 0.1 % (0.0-4.3); Hematocrit 41.8 % (35.5-45.6); Hemoglobin 13.7 gm/dl (11.8-15.2); Lymphocytes # (Auto) 0.8 K/mm3 (1.2-5.4); Mean Corpuscular HGB Conc 33 % (32-34); Mean Corpuscular Hemoglobin 30 pg (28-32); Mean Corpuscular Volume 92 fl (84-94); Monocytes % (Auto) 8.6 % (0.0-7.3); Platelet Count 206 K/mm3 (140-440); Red Blood Count 4.56 M/mm3 (3.65-5.03); Red Cell Distribution Width 13.5 % (13.2-15.2)
[2017-10-10 09:05] LABS: Amphetamine Screen,Urine PRESUMPTIVE NEGATIVE; Benzodiazepines Screen,Urine PRESUMPTIVE NEGATIVE; Cannabinoid Screen,Urine PRESUMPTIVE NEGATIVE; Methadone Screen,Urine PRESUMPTIVE NEGATIVE; Opiate Screen,Urine PRESUMPTIVE NEGATIVE
[2017-10-10 09:11] LABS: BUN/Creatinine Ratio 10; Blood Urea Nitrogen 12 mg/dL (9-20); Calcium 8.8 mg/dL (8.4-10.2); Hemolysis Index 17
[2017-10-10 09:27] LABS: Cocaine Screen,Urine PRESUMPTIVE POSITIVE
--- NOTE | 2017-10-10 09:36 | Cat Scan Report ---
CT scan of the without IV contrast: History: Head Injury. Findings: Ventricles are normal in size and midline in location. No evidence of acute ischemia, hemorrhage or mass. No extra-axial fluid collection. Normal brainstem and cerebellum. Normal calvarium. Impression: No evidence of acute intracranial abnormality
--- NOTE | 2017-10-10 09:38 | Cat Scan Report ---
CT scan of cervical spine: Next History: Trauma. Findings: The odontoid process and the lateral mass and anterior and posterior arch of atlas appears unremarkable. Normal occipital condyles. Normal height of vertebral bodies. Decrease in height of C4-C5, C5-C6 and C6-C7. Sclerotic articular surfaces with osteophyte suggestive of severe cervical spondylosis being most pronounced at C5-C6 and C6-7. No definite evidence of acute fracture. Normal prevertebral soft tissue. Impression: Severe cervical spondylosis. No evidence of acute fracture.
--- NOTE | 2017-10-10 09:40 | Cat Scan Report ---
CT scan of chest without IV contrast: History: Trauma. Findings: No endobronchial or mediastinal mass. No mediastinal, hilar or axillary adenopathy. No pleural pericardial effusion. Small sliding hiatal hernia. Normal lung parenchyma. No consolidation or pneumothorax the Impression: Small sliding hiatal hernia. No acute lung changes.
--- NOTE | 2017-10-10 09:42 | Cat Scan Report ---
CT scan of abdomen and pelvis without IV contrast: History: Trauma. Findings: Normal liver spleen pancreas and gallbladder. Fluid-filled stomach. Bilaterally enlarged adrenals without evidence of mass. Circumscribed hypodensity left kidney measuring 2.8 cm suggestive of a cyst. No hydronephrosis. Normal bladder. No free intraperitoneal fluid or air. No evidence of adenopathy. Normal aorta opinion Gaseous colon with moderate amount of stool in colon. No bowel wall thickening or bowel distention. No evidence of appendicitis or diverticulitis. Next Impression: Cyst left kidney. Suspected bilaterally enlarged adrenal glands.
[2017-10-10] MEDS ORDERED: HumuLIN R IV ONE (09:52)
[2017-10-10] MEDS ORDERED: NACL 0.9% 1000 ML 1,000 ML IV ONE ×3 (09:52→14:43)
[2017-10-10] MEDS ORDERED: TYLENOL ONE ×2 (13:04→13:21)
[2017-10-10] MEDS ORDERED: TYLENOL PO ONE (13:38)
[2017-10-10] MEDS ORDERED: ZOFRAN IV PRN (17:28)
[2017-10-10] MEDS ORDERED: SODIUM CHLORIDE FLUSH SYRINGE 10 ML IV PRN (17:28)
--- NOTE | 2017-10-10 17:28 | History and Physical Report ---
History of Present Illness Date of examination: 10/10/17 Date of admission: 10/10/2017 Chief complaint: Chief complaint: Patient indicates psychosis with hallucinations brought by the police department History of present illness: History of Present Illness: 51-year-old male with history of insulin-dependent diabetes hypertension and schizophrenia/bipolar disorder brought into the emergency room by police department for being involved in an altercation with his family. Patient has severe psychosis and auditory and visual hallucinations. As per police-- patient was very aggressive and was trying to fight them and also was trying to damage the police car. In the process patient sustained some abrasions to his scalp. Patient also complaining of pain all over. No other complaints. Patient is quite now. Patient apparently smashed his head into bars and eventually enough to break the glass of the police car. 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 ANEMIA. GASTROPARESIS. chronic back pain Social History Smoking Status: Current Every Day Smoker Substance Use Type: Alcohol Family and surgical history Noncontributory - Medications Home Medications: Home Medications Medication Instructions Recorded Confirmed Last Taken Type Gabapentin [Neurontin] 300 mg PO BID #60 capsule 10/06/16 Unknown Rx Insulin NPH/Regular [NovoLIN 70/30] 30 unit SQ TIDDIAB #200 units 10/06/16 Unknown Rx Valsartan [Diovan] 160 mg PO DAILY #30 tablet 10/06/16 Unknown Rx amLODIPine [Norvasc] 10 mg PO QDAY #30 tablet 10/06/16 Unknown Rx metFORMIN [Glucophage] 1,000 mg PO BID #60 tablet 10/06/16 Unknown Rx Cyclobenzaprine [Flexeril] 10 mg PO TID PRN #15 tablet 04/02/17 Unknown Rx Medications and Allergies Allergies Allergy/AdvReac Type Severity Reaction Status Date / Time insulin glargine, human Allergy Swelling Verified 03/05/15 00:07 recombin. a [From Lantus] Iodinated Contrast- Oral and Allergy Angioedema Verified 01/25/15 10:33 IV Dye [Iodinated Contrast Media - IV Dye] lisinopril Allergy Unknown Verified 03/01/15 15:36 shellfish derived Allergy Angioedema Verified 01/25/15 10:33 sulfamethoxazole Allergy Hives Verified 01/25/15 10:33 [From Bactrim] tramadol Allergy Swelling Verified 01/25/15 10:33 trimethoprim [From Bactrim] Allergy Hives Verified 01/25/15 10:33 Home Medications Medication Instructions Recorded Confirmed Last Taken Type Gabapentin [Neurontin] 300 mg PO BID #60 capsule 10/06/16 10/10/17 Unknown Rx Insulin NPH/Regular [NovoLIN 70/30] 30 unit SQ TIDDIAB #200 units 10/06/1610/10 Unknown Rx Valsartan [Diovan] 160 mg PO DAILY #30 tablet 10/06/16 10/10/17 Unknown Rx amLODIPine [Norvasc] 10 mg PO QDAY #30 tablet 10/06/16 10/10/17 Unknown Rx metFORMIN [Glucophage] 1,000 mg PO BID #60 tablet 10/06/16 10/10/17 Unknown Rx Cyclobenzaprine [Flexeril] 10 mg PO TID PRN #15 tablet 04/02/17 10/10/17 Unknown Rx Ziprasidone HCl [Geodon] 40 mg PO BID 10/10/17 10/10/17 Unknown History clonazePAM 2 mg PO DAILY 10/10/17 10/10/17 Unknown History lamoTRIgine [LaMICtal] 25 mg PO QDAY 10/10/17 10/10/17 Unknown History Active Meds: Active Medications Sodium Chloride (Nacl 0.9% 1000 Ml) 1,000 mls @ 250 mls/hr IV ONCE ONE Stop: 10/10/17 18:42 Last Admin: 10/10/17 15:00 Dose: 250 mls/hr Review of Systems All systems: negative Constitutional: chronic pain, no weight loss, no weight gain, no fever, no chills, no sweats, no night sweats, no anorexia, no fatigue, no weakness, no malaise, no lethargy, no chronic headaches Ears, nose, mouth and throat: no mouth pain, no dysphagia, no hoarseness, no sore throat, no swelling in mouth, no swelling in throat, no odynophagia Cardiovascular: no chest pain, no orthopnea, no palpitations, no rapid/ irregular heart beat, no edema, no syncope, no lightheadedness, no shortness of breath, no dyspnea on exertion Respiratory: no cough, no cough with sputum, no excessive sputum, no hemoptysis , no shortness of breath, no dyspnea on exertion Gastrointestinal: no abdominal pain, no nausea, no vomiting, no diarrhea, no constipation, no change in bowel habits, no hematemesis, no coffee ground emesis Genitourinary Male: no dysuria, no hematuria, no flank pain, no discharge, no urinary frequency, no urinary hesitancy, no nocturia, no incontinence, no erectile dysfunction, no genital pain Rectal: no pain Musculoskeletal: neck pain, low back pain Integumentary: other (abrasions on scalp), no rash, no pruritis, no redness, no sores, no wounds, no jaundice, no boils, no blisters Neurological: no head injury, no transient paralysis, no paralysis, no seizures , no syncope Psychiatric: disorientation, hallucinations, paranoia, anxiety attacks, irritability, mood swings, no anxiety, no memory loss, no change in sleep habits , no sleep disturbances, no insomnia Endocrine: no cold intolerance, no heat intolerance, no polyphagia, no excessive thirst, no polydipsia, no polyuria Hematologic/Lymphatic: no easy bruising, no easy bleeding Allergic/Immunologic: no urticaria, no allergic rhinitis, no wheezing Exam - Physical Exam Narrative exam: Lying in bed in no acute distress - Constitutional Vitals: Temp Pulse Resp BP Pulse Ox 98.4 F 78 16 155/90 100 10/10/17 16:00 10/10/17 16:00 10/10/17 16:00 10/10/17 16:00 10/10/17 16:00 General appearance: Present: no acute distress, well-nourished - EENT Eyes: Present: PERRL ENT: hearing intact, clear oral mucosa - Neck Neck: Present: supple, normal ROM - Respiratory Respiratory effort: normal Respiratory: bilateral: CTA - Cardiovascular Heart Sounds: Present: S1 & S2. Absent: rub, click - Extremities Extremities: no ischemia, pulses intact, pulses symmetrical, No edema Peripheral Pulses: within normal limits - Abdominal General gastrointestinal: Present: soft, non-tender, non-distended, normal bowel sounds Male genitourinary: Present: normal - Rectal Rectal Exam: deferred - Integumentary Integumentary: Present: clear, warm, dry - Musculoskeletal Musculoskeletal: gait normal, strength equal bilaterally - Psychiatric Psychiatric: intact judgment & insight, cooperative, agitated, other (psychotic) - Neurologic Neurologic: CNII-XII intact, moves all extremities - Allied Health Allied health notes reviewed: nursing, case management Results - Labs CBC & Chem 7: 10/10/17 08:25 10/10/17 08:25 Labs: Laboratory Last Values WBC 11.6 K/mm3 (4.5-11.0) H 10/10/17 08:25 RBC 4.56 M/mm3 (3.65-5.03) 10/10/17 08:25 Hgb 13.7 gm/dl (11.8-15.2) 10/10/17 08:25 Hct 41.8 % (35.5-45.6) 10/10/17 08:25 MCV 92 fl (84-94) 10/10/17 08:25 MCH 30 pg (28-32) 10/10/17 08:25 MCHC 33 % (32-34) 10/10/17 08:25 RDW 13.5 % (13.2-15.2) 10/10/17 08:25 Plt Count 206 K/mm3 (140-440) 10/10/17 08:25 Lymph % (Auto) 7.0 % (13.4-35.0) L 10/10/17 08:25 [place] % (Auto) 8.6 % (0.0-7.3) H 10/10/17 08:25 Eos % (Auto) 0.1 % (0.0-4.3) 10/10/17 08:25 Baso % (Auto) 0.0 % (0.0-1.8) 10/10/17 08:25 Lymph # 0.8 K/mm3 (1.2-5.4) L 10/10/17 08:25 [place] # 1.0 K/mm3 (0.0-0.8) H 10/10/17 08:25 Eos # 0.0 K/mm3 (0.0-0.4) 10/10/17 08:25 Baso # 0.0 K/mm3 (0.0-0.1) 10/10/17 08:25 Seg Neutrophils % 84.3 % (40.0-70.0) H 10/10/17 08:25 Seg Neutrophils # 9.8 K/mm3 (1.8-7.7) H 10/10/17 08:25 Sodium 139 mmol/L (137-145) 10/10/17 08:25 Potassium 3.6 mmol/L (3.6-5.0) 10/10/17 08:25 Chloride 98.7 mmol/L (98-107) 10/10/17 08:25 Carbon Dioxide 19 mmol/L (22-30) L 10/10/17 08:25 Anion Gap 25 mmol/L 10/10/17 08:25 BUN 12 mg/dL (9-20) 10/10/17 08:25 Creatinine 1.2 mg/dL (0.8-1.5) 10/10/17 08:25 Estimated GFR > 60 ml/min 10/10/17 08:25 BUN/Creatinine Ratio 10 % 10/10/17 08:25 Glucose 377 mg/dL (75-100) H 10/10/17 08:25 POC Glucose 209 (70-105) H 10/10/17 11:28 Calcium 8.8 mg/dL (8.4-10.2) 10/10/17 08:25 Total Creatine Kinase 5699 units/L (55-170) H 10/10/17 13:20 Troponin T < 0.010 ng/mL (0.00-0.029) 10/10/17 08:45 Urine Color Yellow (Yellow) 10/10/17 08:34 Urine Turbidity Clear (Clear) 10/10/17 08:34 Urine pH 6.0 (5.0-7.0) 10/10/17 08:34 Ur Specific [place] 1.030 (1.003-1.030) 10/10/17 08:34 Urine Protein 100 mg/dl mg/dL (Negative) 10/10/17 08:34 Urine Glucose (UA) >=500 mg/dL (Negative) 10/10/17 08:34 Urine Ketones Neg mg/dL (Negative) 10/10/17 08:34 Urine Blood Mod (Negative) 10/10/17 08:34 Urine Nitrite Neg (Negative) 10/10/17 08:34 Urine Bilirubin Neg (Negative) 10/10/17 08:34 Urine Urobilinogen < 2.0 mg/dL (<2.0) 10/10/17 08:34 Ur Leukocyte Esterase Neg (Negative) 10/10/17 08:34 Urine WBC (Auto) 4.0 /HPF (0.0-6.0) 10/10/17 08:34 Urine RBC (Auto) 5.0 /HPF (0.0-6.0) 10/10/17 08:34 U Epithel Cells (Auto) 1.0 /HPF (0-13.0) 10/10/17 08:34 Urine Mucus Few /HPF 10/10/17 08:34 Salicylates < 0.3 mg/dL (2.8-20.0) L 10/10/17 08:25 Urine Opiates Screen Presumptive negative 10/10/17 08:34 Urine Methadone Screen Presumptive negative 10/10/17 08:34 Acetaminophen < 5.0 ug/mL (10.0-30.0) L 10/10/17 08:25 Ur Barbiturates Screen Presumptive negative 10/10/17 08:34 Ur Phencyclidine Scrn Presumptive negative 10/10/17 08:34 Ur Amphetamines Screen Presumptive negative 10/10/17 08:34 U Benzodiazepines Scrn Presumptive negative 10/10/17 08:34 Urine Cocaine Screen Presumptive positive 10/10/17 08:34 U Marijuana (THC) Screen Presumptive negative 10/10/17 08:34 Drugs of Abuse Note Disclamer 10/10/17 08:34 Plasma/Serum Alcohol 0.03 % (0-0.07) 10/10/17 08:25 Short CBC 10/10/17 Range/Units 08:25 WBC 11.6 H (4.5-11.0) K/mm3 Hgb 13.7 (11.8-15.2) gm/dl Hct 41.8 (35.5-45.6) % Plt Count 206 (140-440) K/mm3 BMP 10/10/17 08:25 Sodium 139 Potassium 3.6 Chloride 98.7 Carbon Dioxide 19 L BUN 12 Creatinine 1.2 Glucose 377 H Calcium 8.8 Cardiac Enzymes 10/10/17 10/10/17 10/10/17 Range/Units 08:45 08:45 13:20 Total Creatine Kinase 1398 H 5699 H (55-170) units/L Troponin T < 0.010 (0.00-0.029) ng/mL 10/10/17 Range/Units 17:53 Total Creatine Kinase 6389 H (55-170) units/L Troponin T (0.00-0.029) ng/mL Urine 10/10/17 Range/Units 08:34 Urine Color Yellow (Yellow) Urine pH 6.0 (5.0-7.0) Ur Specific [place] 1.030 (1.003-1.030) Urine Protein 100 mg/dl (Negative) mg/dL Urine Glucose (UA) >=500 (Negative) mg/dL - Imaging and Cardiology EKG: report reviewed (sinus rhythm heart rate of [address] elevations in V1 and V2 V3 EKG interpreted by me) Assessment and Plan Advance Directives: Yes (full code.) VTE prophylaxis?: Chemical Plan of care discussed with patient/family: Yes - Patient Problems (1) Rhabdomyolysis Current Visit: Yes Status: Acute Qualifiers: Rhabdomyolysis type: traumatic Encounter type: initial encounter Qualified Code(s): T79.6XXA - Traumatic ischemia of muscle, initial encounter Plan to address problem: Secondary to fighting the police. Creatinine kinases in the mid 6000. IV fluids for now monitor creatinine kinases and possible discharge in 24-48 hours and the creatinine kinases trending down (2) Acute psychosis Current Visit: Yes Status: Acute Plan to address problem: Patient initiated on his home medications especially Geodon (3) Insulin dependent diabetes mellitus Current Visit: Yes Status: Chronic Plan to address problem: Check hemoglobin A1c Continue home insulin and coverage with moderate dose sliding scale protocol His glucose levels are high Probably noncompliant (4) Hypertension Current Visit: Yes Status: Chronic Qualifiers: Hypertension type: essential hypertension Qualified Code(s): I10 - Essential (primary) hypertension Plan to address problem: Continue antihypertensives especially Diovan (5) Peripheral neuropathy Current Visit: Yes Status: Chronic Qualifiers: Peripheral neuropathy type: polyneuropathy, unspecified Qualified Code(s): G62.9 - Polyneuropathy, unspecified Plan to address problem: Continue gabapentin (6) Muscle spasm Current Visit: Yes Status: Chronic Plan to address problem: Continue Flexeril (7) REGULO (generalized anxiety disorder) Current Visit: Yes Status: Chronic Plan to address problem: Continue clonazepam (8) DVT prophylaxis Current Visit: Yes Status: Acute Plan to address problem: patient initiated on Lovenox/heparin GI prophylaxis initiated
[2017-10-10] MEDS: MORPHINE IV PRN ×2 (19:55→23:58)
[2017-10-10] MEDS ORDERED: FLEXERIL PO PRN (20:15)
[2017-10-10] MEDS ORDERED: CLONAZEPAM 2 MG PO SCH (20:15)
[2017-10-10 21:27] LABS: Creatine Kinase MB 11.5 ng/mL (0.0-4.0)
[2017-10-10] MEDS: NORVASC PO SCH (21:51)
[2017-10-10] MEDS: NEURONTIN PO SCH (21:51)
[2017-10-10] MEDS: GEODON PO SCH (21:51)
[2017-10-10] MEDS: LaMICtal PO SCH (21:51)
[2017-10-10] MEDS: DIOVAN PO SCH (21:57)
[2017-10-10] MEDS ORDERED: ZIPRASIDONE HCL 40 MG PO SCH (22:00)
[2017-10-10] MEDS: SODIUM CHLORIDE FLUSH SYRINGE 10 ML IV SCH (22:03)
[2017-10-10] MEDS: HumaLOG SUB-Q SCH (22:09)
[2017-10-10] MEDS: GLUCOPHAGE PO SCH (22:20)
[2017-10-10] MEDS: TYLENOL PO PRN (23:57)
[2017-10-11] MEDS ORDERED: APRESOLINE IV ONE (00:04)
[2017-10-11] MEDS: NACL 0.9% 1000 ML 1,000 ML IV SCH ×3 (00:18→17:27)
[2017-10-11] MEDS: TYLENOL PO PRN (03:38)
[2017-10-11 05:44] LABS: Basophils % (Auto) 0.4 % (0.0-1.8); Eosinophils % (Auto) 0.5 % (0.0-4.3); Hematocrit 39.2 % (35.5-45.6); Hemoglobin 13.3 gm/dl (11.8-15.2); Lymphocytes # (Auto) 1.6 K/mm3 (1.2-5.4); Lymphocytes % (Auto) 22.9 % (13.4-35.0); Mean Corpuscular HGB Conc 34 % (32-34); Mean Corpuscular Hemoglobin 31 pg (28-32); Mean Corpuscular Volume 91 fl (84-94); Monocytes # (Auto) 0.7 K/mm3 (0.0-0.8); Monocytes % (Auto) 10.4 % (0.0-7.3); Platelet Count 174 K/mm3 (140-440); Red Blood Count 4.32 M/mm3 (3.65-5.03); Red Cell Distribution Width 13.8 % (13.2-15.2)
[2017-10-11 06:01] LABS: Alanine Aminotransferase 32 units/L (7-56); Albumin 3.7 g/dL (3.9-5); BUN/Creatinine Ratio 11; Blood Urea Nitrogen 10 mg/dL (9-20); Calcium 8.2 mg/dL (8.4-10.2); Hemolysis Index 3
[2017-10-11] MEDS: GLUCOPHAGE PO SCH ×2 (08:40→17:24)
[2017-10-11] MEDS: HumaLOG SUB-Q SCH ×4 (08:42→22:18)
[2017-10-11] MEDS: LaMICtal PO SCH (09:08)
[2017-10-11] MEDS: DIOVAN PO SCH (09:08)
[2017-10-11] MEDS: NORVASC PO SCH (09:08)
[2017-10-11] MEDS: NEURONTIN PO SCH ×3 (09:12→21:32)
[2017-10-11] MEDS: SODIUM CHLORIDE FLUSH SYRINGE 10 ML IV SCH ×2 (09:12→21:31)
--- NOTE | 2017-10-11 11:05 | Progress Note ---
Assessment and Plan Assessment and plan: Patient is a 51 yo man with history of IDDM and schizophrenia who presented to ED via police after altercation with family and then police. He was acutely psychotic but admitted to Internal medicine due to rhabdo. -Rhabdomyolysis due to trauma: cpk levels erin to 5484, was 7124, continue IVF -Acute psychosis under 1013: adjust psych medications as he is drowsy -Acute encephalopahty as above -Schizophrenia: mental health accessor did evaluate -Hyperglycemia due to uncontrolled IDDM: adjust ssi -DVT prophylaxis: added sq heparin Disposition: once cpk level closer to 1000 then discharge to [facility]. History Interval history: Patient was seen and examined. Follow-up on current diagnosis of ams/agitation. Overnight uneventful. Patient denies any chest pain, shortness breath, nausea/ vomiting or severe headaches. Imaging, nursing note, chart, labs and old chart reviewed. Discussed with patient. Under 1013 with police at bedside. Hospitalist Physical - Physical exam Narrative exam: GEN: WDWN, NAD, lethargic but arousable, snoring loud. HEENT: NCAT, EOMI, PERRL, OP Clear NECK: supple, no adenopathy, no thyromegaly, no JVD CVS/HEART: RRR, normal S1S2, pulses present bilaterally CHEST/LUNGS: CTA B, Symmetrical chest expansion, good air entry bilaterally GI/Abdomen: soft, NTND, good bowel sounds, no guarding or rebound /Bladder: no suprapubic tenderness, no CVA or paraspinal tenderness EXT/Skin: no c/c/e, no obvious rash MSK: FROM x 4 Neuro: CN 2-12 grossly intact, no new focal deficits Psych: confused - Constitutional Vitals: Temp Pulse Resp BP Pulse Ox 98.8 F 74 22 167/102 98 10/11/17 08:53 10/11/17 08:43 10/11/17 03:22 10/11/17 09:08 10/11/17 08:43 General appearance: Present: no acute distress, well-nourished Results - Labs CBC & Chem 7: 10/11/17 05:19 10/11/17 05:19 Labs: Laboratory Last Values WBC 6.9 K/mm3 (4.5-11.0) 10/11/17 05:19 RBC 4.32 M/mm3 (3.65-5.03) 10/11/17 05:19 Hgb 13.3 gm/dl (11.8-15.2) 10/11/17 05:19 Hct 39.2 % (35.5-45.6) 10/11/17 05:19 MCV 91 fl (84-94) 10/11/17 05:19 MCH 31 pg (28-32) 10/11/17 05:19 MCHC 34 % (32-34) 10/11/17 05:19 RDW 13.8 % (13.2-15.2) 10/11/17 05:19 Plt Count 174 K/mm3 (140-440) 10/11/17 05:19 Lymph % (Auto) 22.9 % (13.4-35.0) 10/11/17 05:19 [place] % (Auto) 10.4 % (0.0-7.3) H 10/11/17 05:19 Eos % (Auto) 0.5 % (0.0-4.3) 10/11/17 05:19 Baso % (Auto) 0.4 % (0.0-1.8) 10/11/17 05:19 Lymph # 1.6 K/mm3 (1.2-5.4) 10/11/17 05:19 [place] # 0.7 K/mm3 (0.0-0.8) 10/11/17 05:19 Eos # 0.0 K/mm3 (0.0-0.4) 10/11/17 05:19 Baso # 0.0 K/mm3 (0.0-0.1) 10/11/17 05:19 Seg Neutrophils % 65.8 % (40.0-70.0) 10/11/17 05:19 Seg Neutrophils # 4.5 K/mm3 (1.8-7.7) 10/11/17 05:19 Sodium 137 mmol/L (137-145) 10/11/17 05:19 Potassium 3.4 mmol/L (3.6-5.0) L 10/11/17 05:19 Chloride 102.6 mmol/L (98-107) 10/11/17 05:19 Carbon Dioxide 22 mmol/L (22-30) 10/11/17 05:19 Anion Gap 16 mmol/L 10/11/17 05:19 BUN 10 mg/dL (9-20) 10/11/17 05:19 Creatinine 0.9 mg/dL (0.8-1.5) 10/11/17 05:19 Estimated GFR > 60 ml/min 10/11/17 05:19 BUN/Creatinine Ratio 11 % 10/11/17 05:19 Glucose 246 mg/dL (75-100) H 10/11/17 05:19 POC Glucose 215 (70-105) H 10/11/17 06:32 Hemoglobin A1c 10.8 % (4-6) H 10/10/17 17:53 Calcium 8.2 mg/dL (8.4-10.2) L 10/11/17 05:19 Total Bilirubin 0.70 mg/dL (0.1-1.2) 10/11/17 05:19 AST 77 units/L (5-40) H 10/11/17 05:19 ALT 32 units/L (7-56) 10/11/17 05:19 Alkaline Phosphatase 75 units/L (35-129) 10/11/17 05:19 Total Creatine Kinase 5484 units/L (55-170) H 10/11/17 05:19 CK-MB (CK-2) 11.5 ng/mL (0.0-4.0) H 10/10/17 20:36 CK-MB (CK-2) Rel Index 0.1 (0-4) 10/10/17 20:36 Troponin T < 0.010 ng/mL (0.00-0.029) 10/10/17 08:45 Total Protein 6.2 g/dL (6.3-8.2) L 10/11/17 05:19 Albumin 3.7 g/dL (3.9-5) L 10/11/17 05:19 Albumin/Globulin Ratio 1.5 % 10/11/17 05:19 Urine Color Yellow (Yellow) 10/10/17 08:34 Urine Turbidity Clear (Clear) 10/10/17 08:34 Urine pH 6.0 (5.0-7.0) 10/10/17 08:34 Ur Specific [place] 1.030 (1.003-1.030) 10/10/17 08:34 Urine Protein 100 mg/dl mg/dL (Negative) 10/10/17 08:34 Urine Glucose (UA) >=500 mg/dL (Negative) 10/10/17 08:34 Urine Ketones Neg mg/dL (Negative) 10/10/17 08:34 Urine Blood Mod (Negative) 10/10/17 08:34 Urine Nitrite Neg (Negative) 10/10/17 08:34 Urine Bilirubin Neg (Negative) 10/10/17 08:34 Urine Urobilinogen < 2.0 mg/dL (<2.0) 10/10/17 08:34 Ur Leukocyte Esterase Neg (Negative) 10/10/17 08:34 Urine WBC (Auto) 4.0 /HPF (0.0-6.0) 10/10/17 08:34 Urine RBC (Auto) 5.0 /HPF (0.0-6.0) 10/10/17 08:34 U Epithel Cells (Auto) 1.0 /HPF (0-13.0) 10/10/17 08:34 Urine Mucus Few /HPF 10/10/17 08:34 Salicylates < 0.3 mg/dL (2.8-20.0) L 10/10/17 08:25 Urine Opiates Screen Presumptive negative 10/10/17 08:34 Urine Methadone Screen Presumptive negative 10/10/17 08:34 Acetaminophen < 5.0 ug/mL (10.0-30.0) L 10/10/17 08:25 Ur Barbiturates Screen Presumptive negative 10/10/17 08:34 Ur Phencyclidine Scrn Presumptive negative 10/10/17 08:34 Ur Amphetamines Screen Presumptive negative 10/10/17 08:34 U Benzodiazepines Scrn Presumptive negative 10/10/17 08:34 Urine Cocaine Screen Presumptive positive 10/10/17 08:34 U Marijuana (THC) Screen Presumptive negative 10/10/17 08:34 Drugs of Abuse Note Disclamer 10/10/17 08:34 Plasma/Serum Alcohol 0.03 % (0-0.07) 10/10/17 08:25
[2017-10-11] MEDS ORDERED: K-DUR PO ONE (11:08)
[2017-10-11] MEDS: GEODON PO SCH ×3 (12:23→21:29)
[2017-10-11] MEDS: PERCOCET 5/325 PO PRN (15:30)
[2017-10-11] MEDS: MORPHINE IV PRN (21:47)
[2017-10-12] MEDS: NACL 0.9% 1000 ML 1,000 ML IV SCH ×3 (01:14→21:39)
[2017-10-12] MEDS ORDERED: APRESOLINE IV PRN (04:32)
[2017-10-12] MEDS: TYLENOL PO PRN (04:50)
[2017-10-12] MEDS: HumaLOG SUB-Q SCH ×4 (07:44→23:28)
[2017-10-12] MEDS: PERCOCET 5/325 PO PRN ×3 (08:16→21:50)
[2017-10-12] MEDS: GLUCOPHAGE PO SCH ×2 (08:20→19:56)
--- NOTE | 2017-10-12 12:26 | Progress Note ---
Assessment and Plan Assessment and plan: Patient is a 51 yo man with history of IDDM and schizophrenia who presented to ED via police after altercation with family and then police. He was acutely psychotic but admitted to Internal medicine due to rhabdo. -Rhabdomyolysis due to trauma: cpk levels erin to 5484, was 7124, continue IVF -Acute psychosis under 1013: adjust psych medications as he is drowsy -Acute encephalopahty as above -Schizophrenia: mental health accessor did evaluate -Hyperglycemia due to uncontrolled IDDM: adjust ssi -DVT prophylaxis: added sq heparin Disposition: once cpk level closer to 1000 then discharge to [facility]. History Interval history: Patient was seen and examined. Follow-up on current diagnosis of ams/agitation. Overnight uneventful. Patient denies any chest pain, shortness breath, nausea/ vomiting or severe headaches. Imaging, nursing note, chart, labs and old chart reviewed. Discussed with patient. Under 1013 with police at bedside. Hospitalist Physical - Physical exam Narrative exam: GEN: WDWN, NAD, lethargic but arousable, snoring loud. HEENT: NCAT, EOMI, PERRL, OP Clear NECK: supple, no adenopathy, no thyromegaly, no JVD CVS/HEART: RRR, normal S1S2, pulses present bilaterally CHEST/LUNGS: CTA B, Symmetrical chest expansion, good air entry bilaterally GI/Abdomen: soft, NTND, good bowel sounds, no guarding or rebound /Bladder: no suprapubic tenderness, no CVA or paraspinal tenderness EXT/Skin: no c/c/e, no obvious rash MSK: FROM x 4 Neuro: CN 2-12 grossly intact, no new focal deficits Psych: confused - Constitutional Vitals: Temp Pulse Resp BP Pulse Ox 99.2 F 92 H 24 143/95 98 10/12/17 07:52 10/12/17 07:52 10/12/17 07:52 10/12/17 07:52 10/12/17 07:52 General appearance: Present: no acute distress, well-nourished Results - Labs CBC & Chem 7: 10/11/17 05:19 10/11/17 05:19 Labs: Laboratory Last Values WBC 6.9 K/mm3 (4.5-11.0) 10/11/17 05:19 RBC 4.32 M/mm3 (3.65-5.03) 10/11/17 05:19 Hgb 13.3 gm/dl (11.8-15.2) 10/11/17 05:19 Hct 39.2 % (35.5-45.6) 10/11/17 05:19 MCV 91 fl (84-94) 10/11/17 05:19 MCH 31 pg (28-32) 10/11/17 05:19 MCHC 34 % (32-34) 10/11/17 05:19 RDW 13.8 % (13.2-15.2) 10/11/17 05:19 Plt Count 174 K/mm3 (140-440) 10/11/17 05:19 Lymph % (Auto) 22.9 % (13.4-35.0) 10/11/17 05:19 [place] % (Auto) 10.4 % (0.0-7.3) H 10/11/17 05:19 Eos % (Auto) 0.5 % (0.0-4.3) 10/11/17 05:19 Baso % (Auto) 0.4 % (0.0-1.8) 10/11/17 05:19 Lymph # 1.6 K/mm3 (1.2-5.4) 10/11/17 05:19 [place] # 0.7 K/mm3 (0.0-0.8) 10/11/17 05:19 Eos # 0.0 K/mm3 (0.0-0.4) 10/11/17 05:19 Baso # 0.0 K/mm3 (0.0-0.1) 10/11/17 05:19 Seg Neutrophils % 65.8 % (40.0-70.0) 10/11/17 05:19 Seg Neutrophils # 4.5 K/mm3 (1.8-7.7) 10/11/17 05:19 Sodium 137 mmol/L (137-145) 10/11/17 05:19 Potassium 3.4 mmol/L (3.6-5.0) L 10/11/17 05:19 Chloride 102.6 mmol/L (98-107) 10/11/17 05:19 Carbon Dioxide 22 mmol/L (22-30) 10/11/17 05:19 Anion Gap 16 mmol/L 10/11/17 05:19 BUN 10 mg/dL (9-20) 10/11/17 05:19 Creatinine 0.9 mg/dL (0.8-1.5) 10/11/17 05:19 Estimated GFR > 60 ml/min 10/11/17 05:19 BUN/Creatinine Ratio 11 % 10/11/17 05:19 Glucose 246 mg/dL (75-100) H 10/11/17 05:19 POC Glucose 223 (70-105) H 10/12/17 11:25 Hemoglobin A1c 10.8 % (4-6) H 10/10/17 17:53 Calcium 8.2 mg/dL (8.4-10.2) L 10/11/17 05:19 Total Bilirubin 0.70 mg/dL (0.1-1.2) 10/11/17 05:19 AST 77 units/L (5-40) H 10/11/17 05:19 ALT 32 units/L (7-56) 10/11/17 05:19 Alkaline Phosphatase 75 units/L (35-129) 10/11/17 05:19 Total Creatine Kinase 3104 units/L (55-170) H 10/12/17 05:36 CK-MB (CK-2) 11.5 ng/mL (0.0-4.0) H 10/10/17 20:36 CK-MB (CK-2) Rel Index 0.1 (0-4) 10/10/17 20:36 Troponin T < 0.010 ng/mL (0.00-0.029) 10/10/17 08:45 Total Protein 6.2 g/dL (6.3-8.2) L 10/11/17 05:19 Albumin 3.7 g/dL (3.9-5) L 10/11/17 05:19 Albumin/Globulin Ratio 1.5 % 10/11/17 05:19 Urine Color Yellow (Yellow) 10/10/17 08:34 Urine Turbidity Clear (Clear) 10/10/17 08:34 Urine pH 6.0 (5.0-7.0) 10/10/17 08:34 Ur Specific [place] 1.030 (1.003-1.030) 10/10/17 08:34 Urine Protein 100 mg/dl mg/dL (Negative) 10/10/17 08:34 Urine Glucose (UA) >=500 mg/dL (Negative) 10/10/17 08:34 Urine Ketones Neg mg/dL (Negative) 10/10/17 08:34 Urine Blood Mod (Negative) 10/10/17 08:34 Urine Nitrite Neg (Negative) 10/10/17 08:34 Urine Bilirubin Neg (Negative) 10/10/17 08:34 Urine Urobilinogen < 2.0 mg/dL (<2.0) 10/10/17 08:34 Ur Leukocyte Esterase Neg (Negative) 10/10/17 08:34 Urine WBC (Auto) 4.0 /HPF (0.0-6.0) 10/10/17 08:34 Urine RBC (Auto) 5.0 /HPF (0.0-6.0) 10/10/17 08:34 U Epithel Cells (Auto) 1.0 /HPF (0-13.0) 10/10/17 08:34 Urine Mucus Few /HPF 10/10/17 08:34 Salicylates < 0.3 mg/dL (2.8-20.0) L 10/10/17 08:25 Urine Opiates Screen Presumptive negative 10/10/17 08:34 Urine Methadone Screen Presumptive negative 10/10/17 08:34 Acetaminophen < 5.0 ug/mL (10.0-30.0) L 10/10/17 08:25 Ur Barbiturates Screen Presumptive negative 10/10/17 08:34 Ur Phencyclidine Scrn Presumptive negative 10/10/17 08:34 Ur Amphetamines Screen Presumptive negative 10/10/17 08:34 U Benzodiazepines Scrn Presumptive negative 10/10/17 08:34 Urine Cocaine Screen Presumptive positive 10/10/17 08:34 U Marijuana (THC) Screen Presumptive negative 10/10/17 08:34 Drugs of Abuse Note Disclamer 10/10/17 08:34 Plasma/Serum Alcohol 0.03 % (0-0.07) 10/10/17 08:25
[2017-10-12] MEDS: LaMICtal PO SCH (12:28)
[2017-10-12] MEDS: NORVASC PO SCH (12:29)
[2017-10-12] MEDS: HEPARIN SUB-Q SCH ×2 (12:30→21:52)
[2017-10-12] MEDS: NEURONTIN PO SCH ×2 (12:31→21:49)
[2017-10-12] MEDS: SODIUM CHLORIDE FLUSH SYRINGE 10 ML IV SCH ×2 (12:32→21:41)
[2017-10-12] MEDS: GEODON PO SCH ×2 (12:58→21:49)
[2017-10-12] MEDS: DIOVAN PO SCH (12:58)
[2017-10-13] MEDS: PERCOCET 5/325 PO PRN (03:10)
[2017-10-13] MEDS: NACL 0.9% 1000 ML 1,000 ML IV SCH (06:13)
[2017-10-13 07:06] LABS: Hematocrit 38.9 % (35.5-45.6); Hemoglobin 12.7 gm/dl (11.8-15.2); Mean Corpuscular HGB Conc 33 % (32-34); Mean Corpuscular Hemoglobin 30 pg (28-32); Mean Corpuscular Volume 92 fl (84-94); Platelet Count 186 K/mm3 (140-440); Red Blood Count 4.22 M/mm3 (3.65-5.03); Red Cell Distribution Width 13.4 % (13.2-15.2)
[2017-10-13 07:31] LABS: BUN/Creatinine Ratio 8; Blood Urea Nitrogen 8 mg/dL (9-20); Calcium 8.4 mg/dL (8.4-10.2); Hemolysis Index 0
[2017-10-13 08:26] VITALS: BP 141/86
[2017-10-13] MEDS: GLUCOPHAGE PO SCH (08:52)
[2017-10-13] MEDS: HumaLOG SUB-Q SCH ×2 (08:53→12:25)
[2017-10-13] MEDS: NORVASC PO SCH (10:30)
[2017-10-13] MEDS: GEODON PO SCH (10:31)
[2017-10-13] MEDS: HEPARIN SUB-Q SCH (10:31)
[2017-10-13] MEDS: NEURONTIN PO SCH (10:31)
[2017-10-13] MEDS: LaMICtal PO SCH (10:32)
--- NOTE | 2017-10-13 10:33 | Discharge Summary ---
Providers - Providers Date of Admission: 10/10/17 17:42 Attending physician: CARMEL WHEATLEY 10/10/17 17:35 Consult to Mental Health [CONS] Routine Reason For Exam: psychosis Place consult to:: MENTAL HEALTH Notified:: MANUEL Phone number called:: [phone] Was contact made?: Yes If yes, spoke with:: MANUEL Time called:: 10:33 Primary care physician: DAISHA PLEITEZ MD Hospitalization Condition: Stable Disposition: DC-30 STILL A PATIENT Exam - Constitutional Vitals: Temp Pulse Resp BP Pulse Ox 98.5 F 95 H 20 141/86 97 10/13/17 08:07 10/13/17 08:07 10/13/17 08:07 10/13/17 08:07 10/13/17 08:07 Plan Follow up with: PRIMARY MD PRICILLA [Primary Care Provider] - 3-5 Days
[2017-10-13] MEDS: DIOVAN PO SCH (10:37)
[2017-10-13] MEDS: SODIUM CHLORIDE FLUSH SYRINGE 10 ML IV SCH (10:38)
== END 2017-10-13 12:58 | DRG 564 ==
LOC: ED 07:40 → 3A 17:42 → EEVIPCON 17:42
PROVIDERS: ADMIT Internal Medicine; ATTEND Hospitalist
DX: T79.6XXA Traumatic ischemia of muscle, initial encounter (principal); G93.40 Encephalopathy, unspecified; F23 Brief psychotic disorder; R45.851 Suicidal ideations; I10 Essential (primary) hypertension; F41.1 Generalized anxiety disorder; M62.838 Other muscle spasm; E11.42 Type 2 diabetes mellitus with diabetic polyneuropathy; G89.29 Other chronic pain; M54.9 Dorsalgia, unspecified; F31.9 Bipolar disorder, unspecified; S00.01XA Abrasion of scalp, initial encounter; F17.210 Nicotine dependence, cigarettes, uncomplicated; E11.65 Type 2 diabetes mellitus with hyperglycemia; T07.XXXA Unspecified multiple injuries, initial encounter; X58.XXXA Exposure to other specified factors, initial encounter; Y93.89 Activity, other specified; Y92.89 Other specified places as the place of occurrence of the external cause; Y99.8 Other external cause status; Z79.4 Long term (current) use of insulin; V89.2XXA Person injured in unspecified motor-vehicle accident, traffic, initial encounter; Z79.899 Other long term (current) drug therapy; Z88.8 Allergy status to other drugs, medicaments and biological substances; Z88.2 Allergy status to sulfonamides; Z88.5 Allergy status to narcotic agent; Z91.013 Allergy to seafood; Z91.041 Radiographic dye allergy status
CPT/HCPCS: 36415; 70450; 71250; 72125; 74176; 80048; 80053; 80307; 80320; 81001; 82550; 82553; 82962; 83036; 84484; 85025; 85027; 93005; 93010; 96361; 96372; 96374; 99406; G0480; J0360; J1644; J1815; J2270; J2405; J3486; J7030

== ENCOUNTER 2018-09-09 23:15 | Emergency (ER) | payer MEDICAID | END 2018-09-09 23:30 | disposition left against medical advice (07) | LOC: ED 23:15 | DX: S92.902A Unspecified fracture of left foot, initial encounter for closed fracture (principal); X58.XXXA Exposure to other specified factors, initial encounter; Y93.89 Activity, other specified; Y92.89 Other specified places as the place of occurrence of the external cause; Y99.8 Other external cause status; Z53.21 Procedure and treatment not carried out due to patient leaving prior to being seen by health care provider ==

== ENCOUNTER 2018-11-02 17:18 | Emergency (ER) | payer MEDICAID ==
--- NOTE | 2018-11-02 17:50 | Emergency Department Report ---
Blank Doc - Documentation Documentation: 52 y o male presents to [facility] of rash around groin area x 1 month states pcp gave him cream but no relief rash is intermittent and hurts no dysuria,
[2018-11-02 20:09] LABS: Bilirubin,Urine NEG (Negative); Blood,Urine NEG (Negative); Color,Urine Straw (Yellow); Protein,Urine <15 mg/dL mg/dL (Negative); Urobilinogen,Urine < 2.0 mg/dL (<2.0); WBC,Urine < 1.0 /HPF (0.0-6.0)
[2018-11-02 20:11] LABS: RBC,Urine < 1.0 /HPF (0.0-6.0)
--- NOTE | 2018-11-02 20:48 | Emergency Department Report ---
ED Male HPI - General Chief complaint: Skin Rash Stated complaint: RASH ON PENIS Time Seen by Provider: 11/02/18 17:46 Source: patient Mode of arrival: Ambulatory Limitations: No Limitations - History of Present Illness Initial comments: 52 y o male presents to Ed cc of rash around groin area x 1 month states pcp gave him cream but no relief rash is intermittent and hurts no dysuria, Complaint: other (genital rash ) Onset/Timin -: month(s) Location: penis (penile shaft erythem peeling fissures) Radiation: none Severity: moderate - Related Data Home Medications Medication Instructions Recorded Confirmed Last Taken Ziprasidone HCl [Geodon] 40 mg PO BID 10/10/17 10/10/17 Unknown clonazePAM 2 mg PO DAILY 10/10/17 10/10/17 Unknown lamoTRIgine [LaMICtal] 25 mg PO QDAY 10/10/17 10/10/17 Unknown Previous Rx's Medication Instructions Recorded Last Taken Type Gabapentin [Neurontin] 300 mg PO BID #60 capsule 10/06/16 Unknown Rx Insulin NPH/Regular [NovoLIN 70/30] 30 unit SQ TIDDIAB #200 units 10/06/16 Unknown Rx Valsartan [Diovan] 160 mg PO DAILY #30 tablet 10/06/16 Unknown Rx amLODIPine [Norvasc] 10 mg PO QDAY #30 tablet 10/06/16 Unknown Rx metFORMIN [Glucophage] 1,000 mg PO BID #60 tablet 10/06/16 Unknown Rx Cyclobenzaprine [Flexeril 10 MG 10 mg PO TID PRN #15 tablet 04/02/17 Unknown Rx TAB] Oxycodone HCl/Acetaminophen 1 each PO Q6HR PRN #12 tablet 06/15/18 Unknown Rx [Percocet 7.5/325 mg] Fluconazole [Diflucan TAB] 150 mg PO ONCE #1 tablet 11/02/18 Unknown Rx Ketoconazole 2% [Nizoral] 1 applicatio TP TID 14 Days #1 tube 11/02/18 Unknown Rx Allergies Allergy/AdvReac Type Severity Reaction Status Date / Time insulin glargine, human Allergy Swelling Verified 11/02/18 17:47 recombin. a [From Lantus] Iodinated Contrast- Oral and Allergy Angioedema Verified 11/02/18 17:47 IV Dye [Iodinated Contrast Media - IV Dye] lisinopril Allergy Unknown Verified 11/02/18 17:47 shellfish derived Allergy Angioedema Verified 11/02/18 17:47 sulfamethoxazole Allergy Hives Verified 11/02/18 17:47 [From Bactrim] tramadol Allergy Swelling Verified 11/02/18 17:47 trimethoprim [From Bactrim] Allergy Hives Verified 11/02/18 17:47 ED Review of Systems ROS: Stated complaint: RASH ON PENIS Other details as noted in HPI Constitutional: denies: chills, fever Eyes: denies: eye pain, eye discharge, vision change ENT: denies: ear pain, throat pain Respiratory: denies: cough, shortness of breath, wheezing Cardiovascular: denies: chest pain, palpitations Endocrine: no symptoms reported Gastrointestinal: denies: abdominal pain, nausea, diarrhea Genitourinary: other (penile shaft rash erythem fissurs painful no drainage no fever no testicular fuchs ). 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 ANEMIA. GASTROPARESIS. chronic back pain - Social History Smoking Status: Current Some Day Smoker Substance Use Type: None - Medications Home Medications: Home Medications Medication Instructions Recorded Confirmed Last Taken Type Gabapentin [Neurontin] 300 mg PO BID #60 capsule 10/06/16 10/10/17 Unknown Rx Insulin NPH/Regular [NovoLIN 70/30] 30 unit SQ TIDDIAB #200 units 10/06/16 10/10/17 Unknown Rx Valsartan [Diovan] 160 mg PO DAILY #30 tablet 10/06/16 10/10/17 Unknown Rx amLODIPine [Norvasc] 10 mg PO QDAY #30 tablet 10/06/16 10/10/17 Unknown Rx metFORMIN [Glucophage] 1,000 mg PO BID #60 tablet 10/06/16 10/10/17 Unknown Rx Cyclobenzaprine [Flexeril 10 MG 10 mg PO TID PRN #15 tablet 04/02/17 10/10/17 Unknown Rx TAB] Ziprasidone HCl [Geodon] 40 mg PO BID 10/10/17 10/10/17 Unknown History clonazePAM 2 mg PO DAILY 10/10/17 10/10/17 Unknown History lamoTRIgine [LaMICtal] 25 mg PO QDAY 10/10/17 10/10/17 Unknown History Oxycodone HCl/Acetaminophen 1 each PO Q6HR PRN #12 tablet 06/15/18 Unknown Rx [Percocet 7.5/325 mg] Fluconazole [Diflucan TAB] 150 mg PO ONCE #1 tablet 11/02/18 Unknown Rx Ketoconazole 2% [Nizoral] 1 applicatio TP TID 14 Days #1 tube 11/02/18 Unknown Rx ED Physical Exam - General Limitations: No Limitations General appearance: alert, in no apparent distress - Head Head exam: Present: atraumatic, normocephalic - Eye Eye exam: Present: normal appearance, PERRL, EOMI - ENT ENT exam: Present: mucous membranes moist - Neck Neck exam: Present: normal inspection, full ROM - Respiratory Respiratory exam: Present: normal lung sounds bilaterally. Absent: respiratory distress - Cardiovascular Cardiovascular Exam: Present: regular rate, normal rhythm, normal heart sounds. Absent: systolic murmur, diastolic murmur, rubs, gallop - GI/Abdominal GI/Abdominal exam: Present: soft, normal bowel sounds - Rectal Rectal exam: Present: deferred - exam: Absent: testicular tenderness, urethral discharge, scrotal swelling, vertical testicular lie, circumcision External exam: Present: normal external exam, erythema, swelling. Absent: lacerations, ecchymosis, bleeding - Expanded Exam Expanded Male exam: Present: penile swelling, erythema, balanitis. Absent: induration, perineal induration, priapism - Extremities Exam Extremities exam: Present: normal inspection, full ROM, normal capillary refill. Absent: tenderness - Back Exam Back exam: Present: normal inspection, full ROM. Absent: tenderness, CVA tenderness (R), CVA tenderness (L), rash noted - Neurological Exam Neurological exam: Present: alert, oriented X3, CN II-XII intact, normal gait - Psychiatric Psychiatric exam: Present: normal affect, normal mood - Skin Skin exam: Present: warm, dry, intact, normal color. Absent: rash ED Course Vital Signs 11/02/18 17:47 Temperature 98.4 F Pulse Rate 94 H Respiratory 20 Rate Blood Pressure 157/103 [right] O2 Sat by Pulse 99 Oximetry ED Medical Decision Making - Medical Decision Making this straight forward balanitis will add diflucan po x 1, ketokonzole 2% oint, tid, follow up with pcp in 2-3 days, pt verbalized agreement and understanding of same. Critical care attestation.: If time is entered above; I have spent that time in minutes in the direct care of this critically ill patient, excluding procedure time. ED Disposition Clinical Impression: Balanitis Disposition: - TO HOME OR SELFCARE Is pt being admited?: No Does the pt Need Aspirin: No Condition: Stable Instructions: Abenatis (ED) Prescriptions: Fluconazole [Diflucan TAB] 150 mg PO ONCE #1 tablet Ketoconazole 2% [Nizoral] 1 applicatio TP TID 14 Days #1 tube Referrals: CURRY SALGADO MD [Primary Care Provider] - 3-5 Days Forms: Work/School Release Form(ED) Time of Disposition: 21:01
[2018-11-02 21:12] VITALS: BP 148/95
== END 2018-11-02 21:10 | disposition home or self-care (01) ==
LOC: ED 17:18
DX: N48.1 Balanitis (principal); I10 Essential (primary) hypertension; E11.40 Type 2 diabetes mellitus with diabetic neuropathy, unspecified; M54.9 Dorsalgia, unspecified; G89.29 Other chronic pain; F17.200 Nicotine dependence, unspecified, uncomplicated; Z86.2 Personal history of diseases of the blood and blood-forming organs and certain disorders involving the immune mechanism; Z88.2 Allergy status to sulfonamides; Z88.5 Allergy status to narcotic agent; Z91.041 Radiographic dye allergy status; Z91.013 Allergy to seafood; Z79.4 Long term (current) use of insulin
CPT/HCPCS: 81001; 99283

== ENCOUNTER 2018-11-22 10:29 | Outpatient (CLI) | payer MEDICAID ==
[2018-11-22 11:08] LABS: Bilirubin,Urine NEG (Negative); Blood,Urine SM (Negative); Color,Urine Yellow (Yellow); Protein,Urine <15 mg/dL mg/dL (Negative); Urobilinogen,Urine < 2.0 mg/dL (<2.0); WBC,Urine < 1.0 /HPF (0.0-6.0)
[2018-11-22 11:20] LABS: Albumin 4.4 g/dL (3.9-5); BUN/Creatinine Ratio 10; Blood Urea Nitrogen 11 mg/dL (9-20); Calcium 8.9 mg/dL (8.4-10.2); Hemolysis Index 5
[2018-11-22 12:18] LABS: Creatinine,Urine 111.6 mg/dL (0.1-20.0); Microalbumin/Creatinine Ratio 23.2 ug/mg
== END 2018-11-22 10:30 | disposition home or self-care (01) ==
LOC: LAB 10:29
PROVIDERS: ATTEND Internal Medicine Nephrology
DX: I10 Essential (primary) hypertension (principal); E11.8 Type 2 diabetes mellitus with unspecified complications; R94.4 Abnormal results of kidney function studies; N28.1 Cyst of kidney, acquired
CPT/HCPCS: 36415; 80048; 81001; 82040; 82043; 84100

== ENCOUNTER 2018-12-21 17:25 | Emergency (ER) | payer MEDICAID ==
[2018-12-21 17:50] VITALS: BP 151/99
--- NOTE | 2018-12-21 17:51 | Event Note ---
ED Screening Note Date of service: 12/21/18 Time: 17:47 ED Screening Note: 53 y o male with PMH of DM presents for elevated blood glucose. cc of generalized pain This initial assessment/diagnostic orders/clinical plan/treatment(s) is/are subject to change based on patients health status, clinical progression and re- assessment by fellow clinical providers in the ED. Further treatment and workup at subsequent clinical providers discretion. Patient/guardian urged not to elope from the ED as their condition may be serious if not clinically assessed and managed. Initial orders include: cbc cmp POC gluc caity ph
[2018-12-21 18:35] LABS: Basophils % (Auto) 0.6 % (0.0-1.8); Eosinophils # (Auto) 0.2 K/mm3 (0.0-0.4); Eosinophils % (Auto) 4.6 % (0.0-4.3); Hematocrit 40.7 % (35.5-45.6); Lymphocytes # (Auto) 1.9 K/mm3 (1.2-5.4); Lymphocytes % (Auto) 41.3 % (13.4-35.0); Mean Corpuscular HGB Conc 35 % (32-34); Mean Corpuscular Volume 91 fl (84-94); Monocytes # (Auto) 0.5 K/mm3 (0.0-0.8); Monocytes % (Auto) 11.2 % (0.0-7.3); Platelet Count 214 K/mm3 (140-440); Red Blood Count 4.46 M/mm3 (3.65-5.03); Red Cell Distribution Width 13.5 % (13.2-15.2)
[2018-12-21 18:51] LABS: Bilirubin,Urine NEG (Negative); Blood,Urine NEG (Negative); Color,Urine Yellow (Yellow); Protein,Urine <15 mg/dL mg/dL (Negative); Urobilinogen,Urine < 2.0 mg/dL (<2.0)
[2018-12-21 19:01] LABS: WBC,Urine < 1.0 /HPF (0.0-6.0)
[2018-12-21 19:06] LABS: Alanine Aminotransferase 20 units/L (7-56); BUN/Creatinine Ratio 9; Blood Urea Nitrogen 10 mg/dL (9-20); Calcium 8.4 mg/dL (8.4-10.2); Hemolysis Index 59
== END 2018-12-21 19:40 | disposition left against medical advice (07) ==
LOC: ED 17:25
DX: E11.65 Type 2 diabetes mellitus with hyperglycemia (principal); M79.10 Myalgia, unspecified site; I10 Essential (primary) hypertension; E11.40 Type 2 diabetes mellitus with diabetic neuropathy, unspecified; G89.29 Other chronic pain; M54.9 Dorsalgia, unspecified
CPT/HCPCS: 36415; 80053; 81001; 82805; 82962; 85025; 99283